=== PATIENT | male | born 1940 | race Caucasian/White ===

== ENCOUNTER 2020-06-03 08:45 | Outpatient (CLI) | payer MEDICARE, OTHER ==
[2020-06-03 14:27] LABS: BASOPHILS % (AUTO) 0.4 %; EOSINOPHILS % (AUTO) 0.4 %; HGB - HEMOGLOBIN 8.7 g/dL (14.0-18.0); LYMPHOCYTES # (AUTO) 0.9 10^3/uL (1.5-3.5); LYMPHOCYTES % (AUTO) 13.4 %; MEAN CORPUSCULAR HEMOGLOBIN 22.4 pg (27.0-31.0); MEAN CORPUSCULAR HGB CONC 26.9 g/dL (32.0-36.0); MONOCYTES # (AUTO) 0.7 10^3/uL (0.0-1.0); MONOCYTES % (AUTO) 10.3 %; NEUTROPHILS % (AUTO) 75.2 %; PLT - PLATELET COUNT 207 10^3/uL (130-450); RED BLOOD COUNT 3.89 10^6/uL (4.70-6.10); RED CELL DISTRIBUTION WIDTH 17.9 % (12.0-15.0); WHITE BLOOD COUNT 6.7 x10^3/uL (4.8-10.8)
[2020-06-03 14:45] LABS: PLATELET ESTIMATE, MANUAL NORMAL (130-450,000) (NORMAL); PLATELET MORPHOLOGY NORMAL APPEARANCE (NORMAL); RBC MORPHOLOGY (MULTIPLE) 2+ HYPOCHROMASIA (NORMAL)
[2020-06-03 15:27] LABS: ALBUMIN 4.4 g/dL (3.2-5.5); ALBUMIN/GLOBULIN RATIO 1.3 (1.0-2.2); ALKALINE PHOSPHATASE 73 IU/L (42-121); ALT ALANINE AMINOTRANSFERASE 13 IU/L (10-60); AST ASPARTATE AMINOTRANSFERASE 16 IU/L (10-42); BILIRUBIN,TOTAL 0.7 mg/dL (0.2-1.0); BUN - BLOOD UREA NITROGEN 19 mg/dL (6-20); CALCIUM 9.2 mg/dL (8.5-10.3); CARBON DIOXIDE - CO2 27 mmol/L (21-32); CHLORIDE 104 mmol/L (101-111); CHOL/HDL RATIO 3.4 (<5.0); CHOLESTEROL 126 mg/dL; GLUCOSE 109 mg/dL (70-100); HDL CHOLESTEROL 37 mg/dL; LDL CHOLESTEROL,CALCULATED 73 mg/dL; TOTAL PROTEIN 7.7 g/dL (6.7-8.2); VLDL CHOLESTEROL 16 mg/dL
== END 2020-06-03 08:46 | disposition home or self-care (01) ==
LOC: LAB.S 08:45
PROVIDERS: ATTEND Internal Medicine
DX: I10 Essential (primary) hypertension (principal); Z12.5 Encounter for screening for malignant neoplasm of prostate
CPT/HCPCS: 36415; 80053; 80061; 85025; G0103; 83721; 84153

== ENCOUNTER 2020-07-14 08:53 | Outpatient (CLI) | payer MEDICARE, OTHER ==
[2020-07-14 15:54] LABS: BASOPHILS % (AUTO) 0.3 %; EOSINOPHILS % (AUTO) 0.5 %; HCT - HEMATOCRIT 39.1 % (42.0-52.0); LYMPHOCYTES # (AUTO) 0.9 10^3/uL (1.5-3.5); LYMPHOCYTES % (AUTO) 14.9 %; MEAN CORPUSCULAR HEMOGLOBIN 25.6 pg (27.0-31.0); MEAN CORPUSCULAR HGB CONC 28.1 g/dL (32.0-36.0); MEAN CORPUSCULAR VOLUME 91.1 fL (80.0-94.0); MEAN PLATELET VOLUME 11.6 fL (7.4-11.4); MONOCYTES # (AUTO) 0.6 10^3/uL (0.0-1.0); MONOCYTES % (AUTO) 9.5 %; NEUTROPHILS # (AUTO) 4.3 10^3/uL (1.5-6.6); NEUTROPHILS % (AUTO) 74.5 %; PLT - PLATELET COUNT 172 10^3/uL (130-450); RED BLOOD COUNT 4.29 10^6/uL (4.70-6.10); RED CELL DISTRIBUTION WIDTH 25.9 % (12.0-15.0); WHITE BLOOD COUNT 5.8 x10^3/uL (4.8-10.8)
[2020-07-14 16:40] LABS: FERRITIN 23.4 ng/mL (23.9-336.2)
[2020-07-14 16:54] LABS: PLATELET ESTIMATE, MANUAL NORMAL (130-450,000) (NORMAL); PLATELET MORPHOLOGY 1+ GIANT PLATELETS (NORMAL)
[2020-07-14 16:55] LABS: WBC MORPHOLOGY (MULTIPLE) NORMAL APPEARANCE (NORMAL)
[2020-07-14 17:09] LABS: % IRON SATURATION 12 % (20-50); IRON 47 ug/dL (45-182); TOTAL IRON BINDING CAPACITY 403 ug/dL (250-450); TRANSFERRIN 288 mg/dL (180-329)
[2020-07-16 17:56] LABS: ALBUMIN 4.1 g/dL (3.8-4.8); ALPHA 1 GLOBULIN 0.3 g/dL (0.2-0.3); ALPHA 2 GLOBULIN 0.7 g/dL (0.5-0.9); BETA 1 GLOBULIN 0.5 g/dL (0.4-0.6); BETA 2 GLOBULIN 0.3 g/dL (0.2-0.5)
== END 2020-07-14 08:54 | disposition home or self-care (01) ==
LOC: LAB.S 08:53
PROVIDERS: ATTEND Internal Medicine
DX: D64.9 Anemia, unspecified (principal)
CPT/HCPCS: 36415; 81599; 82607; 82728; 83540; 84155; 84165; 84466; 85025; 86334

== ENCOUNTER 2020-10-09 08:18 | Outpatient (CLI) | payer MEDICARE, OTHER ==
[2020-10-09 14:39] LABS: BASOPHILS % (AUTO) 0.4 %; EOSINOPHILS # (AUTO) 0.1 10^3/uL (0.0-0.7); EOSINOPHILS % (AUTO) 1.4 %; HCT - HEMATOCRIT 43.3 % (42.0-52.0); HGB - HEMOGLOBIN 13.5 g/dL (14.0-18.0); LYMPHOCYTES # (AUTO) 1.2 10^3/uL (1.5-3.5); LYMPHOCYTES % (AUTO) 16.3 %; MEAN CORPUSCULAR HEMOGLOBIN 31.2 pg (27.0-31.0); MEAN CORPUSCULAR HGB CONC 31.2 g/dL (32.0-36.0); MEAN PLATELET VOLUME 11.7 fL (7.4-11.4); MONOCYTES # (AUTO) 0.7 10^3/uL (0.0-1.0); MONOCYTES % (AUTO) 9.2 %; NEUTROPHILS # (AUTO) 5.3 10^3/uL (1.5-6.6); NEUTROPHILS % (AUTO) 72.4 %; PLT - PLATELET COUNT 150 10^3/uL (130-450); RED BLOOD COUNT 4.33 10^6/uL (4.70-6.10); WHITE BLOOD COUNT 7.3 x10^3/uL (4.8-10.8)
[2020-10-09 14:57] LABS: FECAL OCCULT BLOOD (FIT) NEGATIVE (NEGATIVE)
== END 2020-10-09 08:19 | disposition home or self-care (01) ==
LOC: LAB.S 08:18
PROVIDERS: ATTEND Internal Medicine
DX: D64.9 Anemia, unspecified (principal); Z12.11 Encounter for screening for malignant neoplasm of colon
CPT/HCPCS: 36415; 82274; 85025

== ENCOUNTER 2021-01-12 08:40 | Outpatient (CLI) | payer MEDICARE, OTHER ==
[2021-01-12 14:43] LABS: BASOPHILS % (AUTO) 0.3 %; EOSINOPHILS # (AUTO) 0.1 10^3/uL (0.0-0.7); EOSINOPHILS % (AUTO) 0.8 %; HCT - HEMATOCRIT 45.2 % (42.0-52.0); HGB - HEMOGLOBIN 14.1 g/dL (14.0-18.0); LYMPHOCYTES # (AUTO) 1.1 10^3/uL (1.5-3.5); LYMPHOCYTES % (AUTO) 14.8 %; MEAN CORPUSCULAR HEMOGLOBIN 31.7 pg (27.0-31.0); MEAN CORPUSCULAR HGB CONC 31.2 g/dL (32.0-36.0); MEAN CORPUSCULAR VOLUME 101.6 fL (80.0-94.0); MONOCYTES # (AUTO) 0.7 10^3/uL (0.0-1.0); MONOCYTES % (AUTO) 9.3 %; NEUTROPHILS # (AUTO) 5.4 10^3/uL (1.5-6.6); NEUTROPHILS % (AUTO) 74.5 %; PLT - PLATELET COUNT 157 10^3/uL (130-450); RED BLOOD COUNT 4.45 10^6/uL (4.70-6.10); RED CELL DISTRIBUTION WIDTH 13.3 % (12.0-15.0); WHITE BLOOD COUNT 7.3 x10^3/uL (4.8-10.8)
[2021-01-12 15:08] LABS: ALBUMIN 4.3 g/dL (3.2-5.5); ALBUMIN/GLOBULIN RATIO 1.5 (1.0-2.2); CALCIUM 8.8 mg/dL (8.5-10.3); CREATININE 0.9 mg/dL (0.6-1.2); POTASSIUM 3.7 mmol/L (3.5-5.0); TOTAL PROTEIN 7.2 g/dL (6.7-8.2)
== END 2021-01-12 08:41 | disposition home or self-care (01) ==
LOC: LAB.S 08:40
PROVIDERS: ATTEND Internal Medicine
DX: I10 Essential (primary) hypertension (principal); D50.8 Other iron deficiency anemias
CPT/HCPCS: 36415; 80053; 82728; 85025

== ENCOUNTER 2021-12-18 12:44 | Outpatient (CLI) | payer MEDICARE, OTHER ==
[2021-12-18 19:48] LABS: BASOPHILS % (AUTO) 0.5 %; EOSINOPHILS # (AUTO) 0.1 10^3/uL (0.0-0.7); EOSINOPHILS % (AUTO) 1.3 %; HCT - HEMATOCRIT 43.7 % (42.0-52.0); HGB - HEMOGLOBIN 14.1 g/dL (14.0-18.0); LYMPHOCYTES # (AUTO) 1.4 10^3/uL (1.5-3.5); LYMPHOCYTES % (AUTO) 22.2 %; MEAN CORPUSCULAR HEMOGLOBIN 31.6 pg (27.0-31.0); MEAN CORPUSCULAR HGB CONC 32.3 g/dL (32.0-36.0); MEAN PLATELET VOLUME 11.5 fL (7.4-11.4); MONOCYTES # (AUTO) 0.6 10^3/uL (0.0-1.0); MONOCYTES % (AUTO) 9.3 %; NEUTROPHILS # (AUTO) 4.1 10^3/uL (1.5-6.6); NEUTROPHILS % (AUTO) 66.5 %; PLT - PLATELET COUNT 142 10^3/uL (130-450); RED BLOOD COUNT 4.46 10^6/uL (4.70-6.10); RED CELL DISTRIBUTION WIDTH 13.2 % (12.0-15.0); WHITE BLOOD COUNT 6.2 x10^3/uL (4.8-10.8)
== END 2021-12-18 12:45 | disposition home or self-care (01) ==
LOC: LAB.S 12:44
PROVIDERS: ATTEND Registered Nurse
DX: D50.9 Iron deficiency anemia, unspecified (principal)
CPT/HCPCS: 36415; 85025

== ENCOUNTER 2022-07-01 08:09 | Outpatient (CLI) | payer MEDICARE, OTHER ==
[2022-07-01 14:29] LABS: BASOPHILS % (AUTO) 0.3 %; EOSINOPHILS # (AUTO) 0.1 10^3/uL (0.0-0.7); EOSINOPHILS % (AUTO) 1.5 %; HCT - HEMATOCRIT 47.7 % (42.0-52.0); LYMPHOCYTES # (AUTO) 1.1 10^3/uL (1.5-3.5); LYMPHOCYTES % (AUTO) 17.3 %; MEAN CORPUSCULAR HEMOGLOBIN 31.5 pg (27.0-31.0); MEAN CORPUSCULAR HGB CONC 31.4 g/dL (32.0-36.0); MEAN CORPUSCULAR VOLUME 100.2 fL (80.0-94.0); MEAN PLATELET VOLUME 10.9 fL (7.4-11.4); MONOCYTES # (AUTO) 0.6 10^3/uL (0.0-1.0); MONOCYTES % (AUTO) 9.7 %; NEUTROPHILS # (AUTO) 4.6 10^3/uL (1.5-6.6); PLT - PLATELET COUNT 150 10^3/uL (130-450); RED BLOOD COUNT 4.76 10^6/uL (4.70-6.10); RED CELL DISTRIBUTION WIDTH 12.7 % (12.0-15.0); WHITE BLOOD COUNT 6.5 x10^3/uL (4.8-10.8)
[2022-07-01 14:49] LABS: ALBUMIN/GLOBULIN RATIO 1.3 (1.0-2.2); ALKALINE PHOSPHATASE 75 IU/L (42-121); ALT ALANINE AMINOTRANSFERASE 26 IU/L (10-60); AST ASPARTATE AMINOTRANSFERASE 25 IU/L (10-42); BILIRUBIN,TOTAL 1.1 mg/dL (0.2-1.0); BUN - BLOOD UREA NITROGEN 18 mg/dL (6-20); CALCIUM 8.9 mg/dL (8.5-10.3); CARBON DIOXIDE - CO2 28 mmol/L (21-32); CHLORIDE 105 mmol/L (101-111); CHOL/HDL RATIO 3.5 (<5.0); CHOLESTEROL 152 mg/dL; CREATININE 0.8 mg/dL (0.6-1.2); GFR - MDRD 93 (>89); GLUCOSE 106 mg/dL (70-100); HDL CHOLESTEROL 44 mg/dL; POTASSIUM 3.8 mmol/L (3.5-5.0); SODIUM 139 mmol/L (135-145); TOTAL PROTEIN 7.1 g/dL (6.7-8.2); TRIGLYCERIDES 39 mg/dL
[2022-07-01 15:03] LABS: THYROID STIMULATING HORMONE 1.4 uIU/mL (0.34-5.60)
== END 2022-07-01 08:10 | disposition home or self-care (01) ==
LOC: LAB.S 08:09
PROVIDERS: ATTEND Registered Nurse
DX: I10 Essential (primary) hypertension (principal); D50.9 Iron deficiency anemia, unspecified; Z13.220 Encounter for screening for lipoid disorders
CPT/HCPCS: 36415; 80053; 80061; 83721; 84443; 85025

== ENCOUNTER 2022-09-02 07:00 | Outpatient (CLI) | payer MEDICARE, OTHER | END 2022-09-02 23:59 | disposition home or self-care (01) | LOC: LAB.S 07:00 | PROVIDERS: ATTEND Nurse Practitioner | DX: T14.8XXA Other injury of unspecified body region, initial encounter (principal) | CPT/HCPCS: 87070; 87077; 87181; 87205 ==

== ENCOUNTER 2022-09-03 07:00 | Outpatient (CLI) | payer MEDICARE, OTHER ==
--- NOTE | 2022-09-04 13:49 | XRAY Report ---
PROCEDURE: Tib/Fib RT INDICATIONS: RIGHT ANKLE PAIN TECHNIQUE: 2 views of the tibia and fibula were acquired. COMPARISON: None. FINDINGS: Bones: Acute appearing mildly displaced lateral malleolus fracture with fracture at the level of the tibial plafond. There is possible widening of the medial clear space of the ankle and medial talar t ilt. Soft tissues: A tibiotalar effusion is present. IMPRESSION: Acute mildly displaced lateral malleolus fracture. Possible ankle mortise malalignment. Reviewed by: Stewart Truong MD on 09/04/2022 1:48 PM PDT Approved by: Stewart Truong MD on 09/04/2022 1:48 PM PDT Station ID: [id number]
== END 2022-09-03 23:59 | disposition home or self-care (01) ==
LOC: DI.S 07:00
PROVIDERS: ATTEND Internal Medicine
DX: S82.61XA Displaced fracture of lateral malleolus of right fibula, initial encounter for closed fracture (principal)

== ENCOUNTER 2022-09-09 08:00 | Outpatient (CLI) | payer MEDICARE, OTHER ==
--- NOTE | 2022-09-09 15:17 | XRAY Report ---
PROCEDURE: Ankle 3 View RT INDICATIONS: RIGHT ANKLE FRACTURE TECHNIQUE: 3 views of the ankle were acquired. COMPARISON: X-ray lower extremity tib-fib 09/04/2022 FINDINGS: Bones: Mildly displaced distal fibular fracture. There is subluxation at the tibiotalar joint space, unchanged. No suspicious bony lesions. Soft tissues: No tibiotalar joint effusion. Achilles tendon appears normal. IMPRESSION: Stable alignment of mildly displaced distal fibular fracture with subluxation at the tibiotalar joint space. Reviewed by: Alina Salvador MD on 09/09/2022 3:16 PM PDT Approved by: Alina Salvador MD on 09/09/2022 3:16 PM PDT Station ID: [id number]
== END 2022-09-09 23:59 | disposition home or self-care (01) ==
LOC: DI.WOS 08:00
PROVIDERS: ATTEND Physician Assistant Surgical
DX: S82.831D Other fracture of upper and lower end of right fibula, subsequent encounter for closed fracture with routine healing (principal)

== ENCOUNTER 2022-12-19 12:10 | Inpatient (IN) | payer MEDICARE, OTHER ==
--- NOTE | 2022-12-19 12:47 | ED Physician Documentation ---
PD HPI ALTERED MENTAL STATUS - Stated complaint Stated Complaint: CONFUSION,DISORIENTED - Chief complaint Chief Complaint: Neuro - History obtained from History obtained from: Patient, Family - History of Present Illness Timing - onset: Yesterday Timing - duration: Days (2) Timing - details: Gradual onset Quality / character: Confused, Disoriented Associated symptoms: Headache (earlier today). No: Fever, Stiff neck, Dyspnea, Cough, NVD, Urinary sx, General weakness, Focal weakness, Seizure activity Contributing factors: No: Anticoagulated, Diabetic, Cancer, COPD, New medication, Recent med change, Recent illness, Recent injury, Intoxicated, Substance abuse, Known psych illness, Known dementia Basline status: Alert and oriented X 3, Ambulatory, Independent Similar symptoms before: Has not had sx before Recently seen: Not recently seen Review of Systems Constitutional: denies: Fever Ears: denies: Ear pain Nose: denies: Rhinorrhea / runny nose, Congestion Respiratory: denies: Dyspnea, Cough GI: denies: Abdominal Pain, Nausea, Vomiting, Diarrhea Skin: denies: Rash Musculoskeletal: denies: Neck pain, Back pain Neurologic: denies: Head injury PD PAST MEDICAL HISTORY - Past Medical History Cardiovascular: Hypertension Respiratory: None Endocrine/Autoimmune: None GI: Colon polyps : None HEENT: None Psych: None Musculoskeletal: Other Derm: None - Past Surgical History General: Colonoscopy - Present Medications Home Medications: Ambulatory Orders Medication Instructions Recorded Confirmed Amlodipine Besylate 10 mg PO DAILY 01/26/16 09/16/22 Lisinopril 40 mg PO DAILY 01/26/16 09/16/22 Atenolol [Tenormin] 50 mg PO DAILY 09/16/22 09/16/22 Calcium Citrate 99 mg PO DAILY 09/16/22 09/16/22 Cholecalciferol [Vitamin D3] 5,000 unit PO DAILY 09/16/22 09/16/22 Iron,Carb/Vit C/Vit B12/Folic [Fe 1 tab PO DAILY 09/16/22 09/16/22 C Plus Tablet] Roy-3 Fatty Acids [Roy-3] 1,000 mg PO DAILY 09/16/22 09/16/22 Vitamin B Complex Vit C No.3 [B 1 cap PO DAILY 09/16/22 09/16/22 Complex with Vitamin C] Vitamin K2 (Mk-4) [Vitamin K2 125 mcg PO DAILY 09/16/22 09/16/22 (Menaquinone-4)] Zinc Gluconate [Zinc] 50 mg PO DAILY 09/16/22 09/16/22 Triamcinolone Acetonide 0.1% See Rx Instructions .ROUTE 11/04/22 [Triamcinolone Acetonide] .COMPLEX #454 gm - Allergies Allergies/Adverse Reactions: Allergies Allergy/AdvReac Type Severity Reaction Status Date / Time No Known Drug Allergies Allergy Verified 12/19/22 12:15 PD ED PE NORMAL - Vitals Vital signs reviewed: Yes - General General: No acute distress, Well developed/nourished, Other (alert, oriented to person and place) - HEENT HEENT: Atraumatic, PERRL, EOMI, Moist mucous membranes, Pharynx benign - Neck Neck: Supple, no meningeal sign - Cardiac Cardiac: RRR, Strong equal pulses - Respiratory Respiratory: No respiratory distress, Clear bilaterally - Abdomen Abdomen: Soft, Non tender, Non distended - Derm Derm: Warm and dry, Other (Healing wound R ankle no signs of infection) - Extremities Extremities: No edema, No calf tenderness / cord - Neuro Neuro: project engineer 2-12 intact, No motor deficit, No sensory deficit, Other (slow to respond, slow speech) Eye Opening: Spontaneous Motor: Obeys Commands Verbal: Confused GCS Score: 14 NIHSS - Time Time: 12:40 - Level of Consciousness Level of consciousness: (1) Not alert, but arousable by minor stimulation to obey, or answer LOC Questions: (1) Answers one Q correctly LOC Commands: (1) Performs one correctly - Gaze Best Gaze: (0) Normal - Visual Visual: (0) No loss - Facial Palsy Facial Palsy: (0) Normal, symmetrical movement - Motor Arms (both separate) Motor Arm (right): (0) No drift Motor Arm (left): (0) No drift - Motor Legs (both separate) Motor Leg (right): (0) No drift Motor Leg (left): (0) No drift - Limb Ataxia Limb Ataxia: (0) Absent - Sensory Sensory: (0) Normal - Best Language Best Language: (1) [id number] - Dysarthria Dysarthria: (0) Normal - Extinction and Inattention (formally neg Extinction and inattention: (0) No abnormality - Total Score/Results Total Score/Result: 4 Results - Vitals Vitals: Vital Signs - 24 hr 12/19/22 12/19/22 12:15 15:28 Temperature 36.8 C Heart Rate 67 45 L Respiratory 16 12 Rate Blood Pressure 155/92 H 143/89 H O2 Saturation 98 97 Oxygen O2 Source Room air - EKG (time done) 1437 EKG releavant findings:: EKG personally interpreted by author of this note. Relevant findings are: Rate: Rate (enter#) (55) Rhythm: NSR [place]: Normal Intervals: 1st degree AVB QRS: Normal Ischemia: Normal ST segments - Labs Labs: Laboratory Tests 12/19/22 12/19/22 12/19/22 12:53 12:53 12:56 WBC 9.5 RBC 5.25 Hgb 16.3 Hct 50.1 MCV 95.4 H MCH 31.0 MCHC 32.5 RDW 12.7 Plt Count 149 MPV 10.3 Neut # (Auto) 7.8 H Lymph # (Auto) 1.0 L [place] # (Auto) 0.7 Eos # (Auto) 0.0 Baso # (Auto) 0.0 Absolute Nucleated RBC 0.00 Nucleated RBC % 0.0 Sodium 136 Potassium 4.0 Chloride 101 Carbon Dioxide 28 Anion Gap 7.0 BUN 14 Creatinine 0.9 Estimated GFR (MDRD) 81 L Glucose 112 H Calcium 10.1 Magnesium 1.9 Total Bilirubin 1.2 H AST 18 ALT 15 Alkaline Phosphatase 82 Total Creatine Kinase 76 Total Protein 7.5 Albumin 4.6 Globulin 2.9 Albumin/Globulin Ratio 1.6 Lipase 17 TSH 1.09 Urine Color YELLOW Urine Clarity CLEAR Urine pH 7.5 Ur Specific Continental 1.010 Urine Protein NEGATIVE Urine Glucose (UA) NEGATIVE Urine Ketones NEGATIVE Urine Occult Blood NEGATIVE Urine Nitrite NEGATIVE Urine Bilirubin NEGATIVE Urine Urobilinogen 0.2 (NORMAL) Ur Leukocyte Esterase SMALL H Urine RBC 0-5 Urine WBC 0-3 Ur Squamous Epith Cells RARE Squamous Urine Bacteria Rare Ur Microscopic Review INDICATED Urine Culture Comments INDICATED Salicylates < 1.5 Urine Opiates Screen NEGATIVE Ur Oxycodone Screen NEGATIVE Urine Methadone Screen NEGATIVE Ur Propoxyphene Screen NEGATIVE Acetaminophen < 0.1 Ur Barbiturates Screen NEGATIVE Ur Tricyclics Screen NEGATIVE Ur Phencyclidine Scrn NEGATIVE Ur Amphetamine Screen NEGATIVE U Methamphetamines Scrn NEGATIVE U Benzodiazepines Scrn NEGATIVE Urine Cocaine Screen NEGATIVE U Cannabinoids Screen NEGATIVE Ethyl Alcohol < 10.0 - Rads (name of study) head CT Relevant Findings:: Final report received, See rad report angio head/neck Relevant Findings:: Final report received, See rad report PD Medical Decision Making - ED course Complexity details: reviewed results, re-evaluated patient, considered differential, d/w patient, d/w family, d/w business continuity consultant Reviewed Lab Results: No significant findings on CBC, chemistry or urinalysis. Urinalysis appears more consistent with contamination than true UTI. ED course: 82-year-old male with a subacute right MCA stroke. This would be consistent with his confusion that has been gradually worsening. I did speak with teleneurology, Dr. Tompkins, they do recommend aspirin, Lipitor and usual stroke work-up. Angiogram of the head and neck do show diminutive flow in the right MCA and abnormalities in the vertebral artery. Patient was started on aspirin. We will admit the patient for further work-up of his stroke. Patient denies ever having strokes in the past. Discussed the case with Dr. Mccartney, hospitalist who accepts. This document was made in part using voice recognition software. While efforts are made to proofread this document, sound alike and grammatical errors may occur. Departure - Departure Disposition: 66 [facility] DC/Jo Clinical Impression: Acute right MCA stroke Condition: Stable Discharge Date/Time: 12/19/22 17:00
[2022-12-19 13:06] LABS: BASOPHILS % (AUTO) 0.2 %; EOSINOPHILS % (AUTO) 0.2 %; HCT - HEMATOCRIT 50.1 % (42.0-52.0); HGB - HEMOGLOBIN 16.3 g/dL (14.0-18.0); LYMPHOCYTES % (AUTO) 10.8 %; MEAN CORPUSCULAR HGB CONC 32.5 g/dL (32.0-36.0); MEAN CORPUSCULAR VOLUME 95.4 fL (80.0-94.0); MEAN PLATELET VOLUME 10.3 fL (7.4-11.4); MONOCYTES # (AUTO) 0.7 10^3/uL (0.0-1.0); MONOCYTES % (AUTO) 7.1 %; NEUTROPHILS # (AUTO) 7.8 10^3/uL (1.5-6.6); NEUTROPHILS % (AUTO) 81.4 %; PLT - PLATELET COUNT 149 10^3/uL (130-450); RED BLOOD COUNT 5.25 10^6/uL (4.70-6.10); RED CELL DISTRIBUTION WIDTH 12.7 % (12.0-15.0); WHITE BLOOD COUNT 9.5 x10^3/uL (4.8-10.8)
[2022-12-19 13:06] LABS: MUDS CUTOFF CONCENTRATIONS CUTOFF CONC BELOW:
[2022-12-19 13:08] LABS: BILIRUBIN,URINE NEGATIVE (NEGATIVE); GLUCOSE, URINE (UA) NEGATIVE (NEGATIVE); KETONES,URINE (UA) NEGATIVE (NEGATIVE); LEUKOCYTE ESTERASE, URINE SMALL (NEGATIVE); NITRITE,URINE NEGATIVE (NEGATIVE); OCCULT BLOOD,URINE NEGATIVE (NEGATIVE); PH,URINE 7.5 PH (5.0-7.5); PROTEIN,URINE NEGATIVE (NEGATIVE); UROBILINOGEN,URINE 0.2 (NORMAL) E.U./dL (NORMAL)
[2022-12-19 13:11] LABS: CLARITY,URINE CLEAR (CLEAR)
[2022-12-19 13:23] LABS: ALBUMIN 4.6 g/dL (3.2-5.5); ALBUMIN/GLOBULIN RATIO 1.6 (1.0-2.2); ALKALINE PHOSPHATASE 82 IU/L (42-121); ALT ALANINE AMINOTRANSFERASE 15 IU/L (10-60); AST ASPARTATE AMINOTRANSFERASE 18 IU/L (10-42); BILIRUBIN,TOTAL 1.2 mg/dL (0.2-1.0); BUN - BLOOD UREA NITROGEN 14 mg/dL (6-20); CALCIUM 10.1 mg/dL (8.5-10.3); CARBON DIOXIDE - CO2 28 mmol/L (21-32); CHLORIDE 101 mmol/L (101-111); CK- CREATINE KINASE 76 IU/L (30-223); CREATININE 0.9 mg/dL (0.6-1.3); ETOH - ETHANOL < 10.0 mg/dL; GFR - MDRD 81 (>89); GLUCOSE 112 mg/dL (74-104); LIPASE 17 U/L (11-82); MAGNESIUM 1.9 mg/dL (1.7-2.3); SODIUM 136 mmol/L (135-145); TOTAL PROTEIN 7.5 g/dL (6.4-8.9)
[2022-12-19 13:23] LABS: BACTERIA,URINE Rare /HPF (None Seen); RBC,URINE 0-5 /HPF (0-5); SQUAMOUS EPITHELIAL CELL,UR RARE Squamous (<= Few); WBC,URINE 0-3 /HPF (0-3)
[2022-12-19 13:24] LABS: ACETAMINOPHEN < 0.1 ug/mL; SALICYLATE < 1.5 mg/dL
[2022-12-19 13:25] LABS: AMPHETAMINE SCREEN,URINE NEGATIVE (NEGATIVE); BARBITURATE SCREEN,UR NEGATIVE (NEGATIVE); BENZODIAZEPINES SCREEN, URINE NEGATIVE (NEGATIVE); COCAINE SCREEN URINE NEGATIVE (NEGATIVE); METHADONE SCREEN, URINE NEGATIVE (NEGATIVE); METHAMPHETAMINES SCREEN, URINE NEGATIVE (NEGATIVE); OPIATE SCREEN, URINE NEGATIVE (NEGATIVE); OXYCODONE SCREEN, URINE NEGATIVE (NEGATIVE); PROPOXYPHENE SCREEN, URINE NEGATIVE (NEGATIVE); THC CANNABINOID SCREEN, URINE NEGATIVE (NEGATIVE); TRICYCLIC ANTIDEPRESSANT,URINE NEGATIVE (NEGATIVE)
--- NOTE | 2022-12-19 13:30 | CT Report ---
PROCEDURE: CT brain without contrast INDICATIONS: altered mental status TECHNIQUE: Helical axial CT of the brain was obtained without contrast and reformatted in multiple p lanes. Radiation dose reduction was achieved using automated exposure control or adjustment of mA and /or kV according to patient size. COMPARISON: None. FINDINGS: CSF spaces: Ventricles are appropriate in size and position. No hydrocephalus. Basal cisterns unre markable. Brain: There is obscuration of the mathur-white junction and sulcal effacement noted in the approximat frank one third of the right MCA territory in the temporal and posterior parietal lobes consistent with subacute right MCA infarct. Hyperintensity also noted in the right distal right and 3 MCA branches i n the sylvian cistern consistent with thrombus. Otherwise, there is atrophy and multifocal white matter chronic ischemic change present. No intracran ial hemorrhage. Skull and face: Calvarium and skull base are unremarkable without suspicious lesion. Sinuses: Visualized sinuses and mastoids are clear. IMPRESSION: Subacute right MCA infarct with cerebral edema and sulcal effacement, but no intracranial hemorrhage or midline shift currently. Atrophy and multifocal white matter chronic ischemic change Reviewed by: Shade Newell MD on 12/19/2022 12:28 PM KAYDEN Approved by: Shade Newell MD on 12/19/2022 12:28 PM AKDT Station ID: [id number]
[2022-12-19 13:52] LABS: THYROID STIMULATING HORMONE 1.09 uIU/mL (0.34-5.60)
[2022-12-19] MEDS ORDERED: ASPIRIN CHEW 81 MG TABLET PO STA (13:53)
[2022-12-19] MEDS ORDERED: IOVERSOL 320 100 ML VIAL IVP ONE (14:44)
--- NOTE | 2022-12-19 15:10 | CT Report ---
PROCEDURE: CT angiogram head and neck with contrast INDICATIONS: Subacute right MCA infarct TECHNIQUE: Helical axial CT of the head and neck was obtained during the arterial phase of a intrave nous contrast injection utilizing an angiographic protocol, and reformatted in multiple planes. Mult iplanar MIP reformats were also obtained. Any estimate of proximal ICA stenosis was calculated using NASCET guidelines. Dose reduction techniques included either automated exposure control or adjustmen t of exposure parameters. COMPARISON: CT brain 12/19/2022 FINDINGS: Cerebral CT Angiogram: Internal carotid arteries: The sequelae of prior dissection.. No aneurysm. Anterior cerebral arteries: Multifocal severe stenosis noted involving the right A2 THOMAS branch. Main THOMAS vessels are patent. Middle cerebral arteries: Left MCA unremarkable. No proximal right MCA occlusion. Distal right MCA va sculature is diminutive relative to the left, consistent with subacute infarct on prior CT Posterior cerebral arteries: Unremarkable. No significant stenosis. No occlusion. No aneurysm. Basilar artery: Unremarkable. No significant stenosis. No occlusion. No aneurysm. Vertebral arteries: Multifocal severe stenosis in the midline technique the V3 segment with near occl usion. The intradural segment completely occludes at the origin. Trace retrograde flow noted from the basilar artery. Dural venous sinuses: Unremarkable given phase of enhancement. Other: Arterial phase appearance of the brain parenchyma is unremarkable. Neck CT Angiogram: Internal carotid arteries: Calcified arthritic plaque in both proximal internal carotid arteries resu lts in less than 20% stenosis utilizing NASCET criteria Common carotid arteries: Unremarkable. No significant stenosis. No dissection or occlusion. External carotid arteries: Unremarkable. No occlusion. Vertebral arteries: Multifocal severe stenosis noted throughout the extra foraminal and foraminal lef t vertebral artery. Without complete occlusion. There is right vertebral artery dominance. Aortic Arch and Mediastinum: Partially visualized aortic arch unremarkable without evidence of aneury sm. Origins of the great vessels unremarkable. Other: Arterial phase soft tissues of the neck are unremarkable. Degenerative disc disease and arthro greta in the cervical spine. 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 Diminutive distal right MCA branches consistent with subacute MCA infarct. No proximal M1 lesion. Severe stenosis without occlusion right P2 THOMAS branch vessel. Reviewed by: Shade Newell MD on 12/19/2022 2:09 PM KAYDEN Approved by: Shade Newell MD on 12/19/2022 2:09 PM AKFLORIDA Station ID: [id number]
[2022-12-19] MEDS ORDERED: ONDANSETRON 4 MG/2 ML VIAL IVP PRN (16:35)
[2022-12-19] MEDS ORDERED: ACETAMINOPHEN 325 MG TABLET PO PRN (16:35)
--- NOTE | 2022-12-19 16:52 | HISTORY & PHYSICAL EXAMINATION ---
Chief Complaint - Chief Complaint Chief Complaint: Confusion, and trouble finding words History of Present Illness - Admitted From Admitted From:: ED - History Obtained From History obtained from: ED provider and the patient's son at bedside - History of Present Illness HPI Comment/Other: This is an 82-year-old male with history of hypertension on 3 medications and BPH on treatment. He lives alone for the past 15 years. He drives a car. He makes his own meals and is responsible for his medicines. He was out fishing just 2 days ago. He then developed symptoms of confusion and difficulty finding words yesterday while at a , and needed to be taken h ome from the hr receptionist and the neighbor checked in on him. Today the son arrived from [place] and witnessed confusion, poor memory and trouble finding words and the pt was brought to the ER today, over 24 hours after first onset of symptoms. Work-up in the ED showed a subacute stroke in the R MCA territory with cerbral edema and sulcal effacement but no hemorrhage or midline shift. 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 The ED provider reached out to telemedicine neurology who advised admission here for stroke work-up and to start aspirin and Lipitor. The ED provider then spoke to me about this patient for admission. I asked the son at bedside what the patient's CODE BLUE wishes are, and he wants to be a DNR/DNI. History - Past Medical History Cardiovascular: reports: Hypertension Respiratory: reports: None Neuro: reports: None (no prior neuro Hx until yesterday's confusion) Endocrine/Autoimmune: reports: None GI: reports: Colon polyps : reports: None HEENT: reports: None Psych: reports: None Musculoskeletal: reports: Other (R leg rash, followed in wound clinic. Leg ABIs were normal in 10/2022.) Derm: reports: None MRSA Hx?: Yes - Past Surgical History General: reports: Colonoscopy - Family & Social History Family History Comment/Other: HTN runs in family members Living arrangement: At home Living Situation: Alone Social History Notes: Patient is an ex-smoker who quit 20 years ago. The patient quit drinking alcohol 50 years ago. He uses no illicit drugs. The patient is a retired pharmacist, worked at [employer]. The patient drives a car, is independent with walking, enjoys going fishing. - Substance History Use: Uses substance without health or social issues: NONE - POLST Patient has POLST: No POLST Status: DNR (As per the son, from the patient's advanced directive) Meds/Allgy - Home Medications Home Medications: Ambulatory Orders Medication Instructions Recorded Confirmed Amlodipine Besylate 10 mg PO DAILY 01/26/16 09/16/22 Lisinopril 40 mg PO DAILY 01/26/16 09/16/22 Atenolol [Tenormin] 50 mg PO DAILY 09/16/22 09/16/22 Calcium Citrate 99 mg PO DAILY 09/16/22 09/16/22 Cholecalciferol [Vitamin D3] 5,000 unit PO DAILY 09/16/22 09/16/22 Iron,Carb/Vit C/Vit B12/Folic [Fe 1 tab PO DAILY 09/16/22 09/16/22 C Plus Tablet] [place]-3 Fatty Acids [[place]-3] 1,000 mg PO DAILY 09/16/22 09/16/22 Vitamin B Complex Vit C No.3 [B 1 cap PO DAILY 09/16/22 09/16/22 Complex with Vitamin C] Vitamin K2 (Mk-4) [Vitamin K2 125 mcg PO DAILY 09/16/22 09/16/22 (Menaquinone-4)] Zinc Gluconate [Zinc] 50 mg PO DAILY 09/16/22 09/16/22 Triamcinolone Acetonide 0.1% See Rx Instructions .ROUTE 11/04/22 [Triamcinolone Acetonide] .COMPLEX #454 gm - Allergies Allergies/Adverse Reactions: Allergies Allergy/AdvReac Type Severity Reaction Status Date / Time No Known Drug Allergies Allergy Verified 12/19/22 12:15 Review of Systems - All Other Systems All Other Systems: reports: Reviewed and negative Exam - Vital Signs Reviewed Vital Signs: Yes Vital Signs: Vital Signs x48h Temp Pulse Resp BP Pulse Ox 12/19/22 15:28 45 L 12 143/89 H 97 12/19/22 12:15 36.8 C 67 16 155/92 H 98 - Physical Exam General Appearance: positive: Mild distress (From confusion causing agitation) Eyes Bilateral: positive: Normal inspection, EOMI ENT: positive: ENT inspection nml, No signs of dehydration Neck: positive: Nml inspection, No JVD Respiratory: positive: No respiratory distress, Breath sounds nml Cardiovascular: positive: Regular rate & rhythm, No murmur Abdomen: positive: Non-tender, Nml bowel sounds, No distention Skin: positive: Warm, Dry Extremities: positive: Non-tender, No pedal edema Neurologic/Psychiatric: positive: Motor nml, Disoriented to person, Disoriented to place, Disoriented to time, Other (Poor memory. Word-finding difficulty) Conclusion/Plan - Problem List (1) Acute right MCA stroke Conclusion/Plan: The CT brain imaging shows an infarct in the right MCA territory. He is intermittently confused with agitation and is able to voice that he is very frustrated with that. He has tried to climb out of bed but does follow the son's redirections. His memory is poor, he could not remember his easily. Plan: Admit the patient to inpatient status Neurochecks every 4 hours. If there is worsening status, would repeat the head CT or obtain a brain MRI. Low-dose of Ativan for confusion causing agitation, will be used Place on telemetry, monitor for Afib Obtain Echo with bubble study to evaluate for cardiac source of embolus or PFO Obtain carotid ultrasound, complete Check lipids and treat per guidelines Continue with aspirin daily and empiric statin PT and OT evaluations ordered We will allow permissive hypertension for the first 24 hours then resume his BP meds (2) Cerebral edema Conclusion/Plan: The brain CT imaging also reports having cerebral edema but no midline shift. This bodes a poor prognosis. I updated the son at bedside regarding all the findings Plan: Neurochecks every 4 hours Keep HOB elevated at 30 degrees or more Other orders as in #1 above Given the significant confusion, I have advised that a family member stay in the room with him so that there is familiarity and the son agrees to remain here (3) Cerebral vascular disease Conclusion/Plan: CTA images show that he has several vascular distributions with abnormality: A nearly occluded right MCA distally, a nearly occluded L vertebral distally and also severe stenosis proximally and internal carotids have evidence of prior dissection. Plan: Management will be as for the (sub)acute stroke. The telemedicine neurologist did not recommend transfer for interventions acutely (4) HTN (hypertension) Conclusion/Plan: Patient has a history of hypertension and is on 3 antihypertensives at home: Atenolol, lisinopril and Norvasc His EKG shows severe LVH which could be from this HTN Plan: We will allow 24 hours of permissive hypertension and then resume his BP meds - Lab Results Fish Bones: 12/19/22 12:53 12/19/22 12:53 - Diagnostic Imaging Results Diagnostic Imaging Results: positive: Final report reviewed - Other Other Results/Comments: Attestation: The patient is expected to need hospitalization for greater than 2 midnights, and is expected to be discharged or transferred to another facility within 96 hours: Yes.
[2022-12-19] MEDS: LORazepam 2 MG/ML VIAL IVP PRN ×2 (18:02→21:51)
[2022-12-19] MEDS: SODIUM CHLORIDE FLUSH 0.9% 10 ML SYRINGE IVP SCH (18:03)
--- NOTE | 2022-12-19 19:42 | Ultrasound Report ---
PROCEDURE: Carotid Doppler Complete INDICATIONS: CVA,"evidence of prior disection internal carotid" TECHNIQUE: Color and pulse Doppler interrogation was performed of both carotid systems, with image documentation and velocity measurements. COMPARISON: None. FINDINGS: Right side: Brachial blood pressure: 171/59 mm Hg. Common carotid artery peak systolic velocity: 71.2 cm/sec. Internal carotid artery peak systolic velocity: 70.2 cm/sec. Internal carotid artery end diastolic velocity: 15.4 cm/sec. External carotid artery peak systolic velocity: 81.2 cm/sec. ICA/CCA peak systolic ratio: 1.0 . Quigley scale imaging description: Moderate diffuse plaque. Percent internal carotid artery stenosis: Less than 50% stenosis. Vertebral artery: Flow direction is antegrade. Left side: Brachial blood pressure: 157/70 mm Hg. Common carotid artery peak systolic velocity: 85.1 cm/sec. Internal carotid artery peak systolic velocity: 87.9 cm/sec. Internal carotid artery end diastolic velocity: 22.6 cm/sec. External carotid artery peak systolic velocity: 76.0 cm/sec. ICA/CCA peak systolic ratio: 1.0 . Quigley scale imaging description: Moderate diffuse plaque. Percent internal carotid artery stenosis: Less than than 50% stenosis. Vertebral artery: Flow direction is antegrade. IMPRESSION: 1. In the right internal carotid artery, there is less than 50 percent stenosis based on peak systoli c velocity criteria. 2. In the left internal carotid artery, there is less than 50 percent stenosis based on peak systolic velocity criteria. 3. Antegrade blood flow within the right vertebral artery. 4. Antegrade blood flow within the left vertebral artery. The estimate of stenosis included in the report of the imaging study was calculated using the [facility]-end orsed standards of carotid artery stenosis. Reviewed by: Leandro Zuniga on 12/19/2022 7:40 PM PDT Approved by: Leandro Zuniga on 12/19/2022 7:40 PM PDT Station ID: [id number]
[2022-12-20] MEDS: SODIUM CHLORIDE FLUSH 0.9% 10 ML SYRINGE IVP SCH ×3 (03:22→18:25)
[2022-12-20 05:33] LABS: CHOL/HDL RATIO 3.7 (<5.0); CHOLESTEROL 117 mg/dL; HDL CHOLESTEROL 32 mg/dL; LDL CHOLESTEROL,CALCULATED 66 mg/dL; LDL/HDL RATIO 2.1 (<3.6); TRIGLYCERIDES 94 mg/dL (48-352); VLDL CHOLESTEROL 19 mg/dL
[2022-12-20] MEDS: ASPIRIN EC 81 MG TABLET PO SCH (08:17)
--- NOTE | 2022-12-20 13:44 | PHARMACY PROGRESS NOTE ---
- Best Possible Medication History Admit Date and Time: 12/19/22 5861 Processed by: Pharmacy Medication History completed: Yes Patient Interview: Completed Secondary Source(s): Other family member, Insurance records As the person ultimately responsible for medication therapy, providers are able to order a medication from an existing home medication list in [facility] via the "Reconcile Routine" prior to Confirmation of that medication by field technical support consultant. Such practice is discouraged except when the physician, in their clinical judgment, deems that a medical need exists for a medication without regard to previous use.
--- NOTE | 2022-12-20 15:04 | PROVIDER PROGRESS NOTE ---
Assessment/Plan - Problem List (1) Acute right MCA stroke Assessment/Plan: The CT brain imaging shows an infarct in the right MCA territory. He presented intermittently confused with agitation, but was answering questions yesterday but with word-finding difficulty, and even said he is frustrated with that. He tried to climb out of bed at admission, but then followed the son's redirections. Son stayed in his room ever since admission. Fasting lipids showed LDL of 66, Trig 84. Today he has worsening mental status, is more lethargic, did not follow directions, did not know what to do with food on his plate or a sock that was handed to him. My concern is that his cerebral edema is worsening since he had a large territory of brain involved with the stroke Plan: I will move the patient to the ICU Neurochecks every 4 hours. Stop Ativan for agitation Cont telemetry, monitor for Afib Obtain Echo with bubble study to evaluate for cardiac source of embolus or PFO (He was admitted on Tuesday, today is Tuesday, we have no sterile preparation technician until Tuesday through ) Continue baby aspirin daily. We will only put him on Lipitor 20 nightly PT and OT evaluations ordered We will allow permissive hypertension for the first 24 hours then resume his BP meds (2) Cerebral edema Conclusion/Plan: The brain CT imaging reports cerebral edema but no midline shift. This bodes a poor prognosis. My concern is that his cerebral edema is worsening since he had a large terr itory of brain involved with the stroke. I updated the son at bedside regarding all the findings Plan: Transfer patient to ICU Start mannitol bolus then q6h dosing. Measure serum osmolality q6h, stop Mannitol if abn osmolallity Neurochecks every 4 hours Keep HOB elevated at 30 degrees or more Stop Ativan for agitation Given the significant confusion, I have advised that a family member stay in the room with him so he has familiarity (3) Cerebral vascular disease Conclusion/Plan: CTA images show that he has several vascular distributions with abnormality: A nearly occluded right MCA distally, a nearly occluded L vertebral distally and also severe stenosis proximally and internal carotids have evidence of prior dissection. Ultrasound carotids was done and showed no significant stenoses and no dissection Plan: Management will be as for the (sub)acute stroke. The telemedicine neurologist did not recommend transfer for interventions acutely (4) HTN (hypertension) Conclusion/Plan: Patient has a history of hypertension and is on 3 antihypertensives at home: Atenolol, lisinopril and Norvasc His EKG shows severe LVH which could be from this HTN Plan: We will allow 24-48 hours of permissive hypertension and then resume his BP meds slowly - Current Meds Current Meds: Current Medications Generic Name Dose Route Start Last Admin Trade Name Freq PRN Reason Stop Dose Admin Aspirin 81 mg 12/20/22 09:00 12/20/22 08:17 Aspirin Ec 81 Mg Tablet PO 81 mg DAILY MOSES Administration Lorazepam 0.5 mg 12/19/22 17:51 12/19/22 21:51 Lorazepam 2 Mg/Ml Vial IVP 0.5 mg Q4H PRN Administration Agitation Sodium Chloride 10 ml 12/19/22 17:00 12/20/22 08:17 Sodium Chloride Flush 0.9% 10 Ml Syringe IVP 10 ml 0100,0900,1700 MOSES Administration - Lab Result Fish Bone Diagrams: 12/19/22 12:53 12/19/22 12:53 - Additional Planning My Orders: My Active Orders 12/19/22 Dinner Soft Mechanical Diet [DIET] 12/19/22 16:35 Activity Orders [RC] Q2HR IO [RC] IOSHIFT Incentive Spirometry - RT [RC] .TID Initiate Bowel Care Protocol [RC] .protocol Initiate Line Care Protocol [RC] QSHIFT Initiate Personal Care Protoco [RC] .protocol Oxygen Therapy [RC] .PRN Telemetry- [RC] Q4HR Vital Signs [RC] 0800,1600,0000 Acetaminophen [Tylenol] 650 mg PO Q4HR PRN Ondansetron Inj [Zofran Inj] 4 mg IVP Q6HR PRN Sodium Chloride Flush 0.9% [Normal Saline Flush 0.9%] 10 ml IVP PRN PRN Code Status [OTHERS] Routine Condition of Patient [OTHERS] Routine DVT Prophylaxis [OTHERS] Routine 12/19/22 16:37 IV Insert [RC] .ONCE Initiate Line Care Protocol [RC] QSHIFT SCDs [RC] QSHIFT Evaluate and Treat OT [OT] Routine Evaluate and Treat PT [PT] Routine 12/19/22 16:41 Neuro Check [RC] Q4HR 12/19/22 17:00 Sodium Chloride Flush 0.9% [Normal Saline Flush 0.9%] 10 ml IVP 0100,0900,1700 12/19/22 17:51 LORazepam INJ [Ativan Inj (Vial)] 0.5 mg IVP Q4H PRN 12/19/22 17:52 Elevate HOB 30 - 45 degrees [RC] .ONCE 12/20/[address] [ST] Routine 12/20/22 07:00 Echo Complete w/Bubble Study [ECHO] Routine 12/20/22 09:00 Aspirin EC [Ecotrin] 81 mg PO DAILY 12/20/22 14:58 Transfer [Admit \ Transfer \ Status] [RC] .ONCE 12/20/22 21:00 Atorvastatin [Lipitor] 20 mg PO QPM Subjective - Subjective Patient Reports: Other (He is not as agitated, and could not focus on wher my speech was coming from, looked off to the side) Nursing Reports: Other (RN reports that when his food dtray came, he just looked at it and did not know what to do with it. Then he ate almost the whole tray but needed to be fed.) Objective Vital Signs: Vital Signs - 24 hr 12/19/22 12/19/22 12/19/22 15:28 16:55 17:15 Temperature 36.7 C Heart Rate 45 L 60 Heart Rate [ 63 Brachial] Respiratory 12 12 20 Rate Blood Pressure 143/89 H 154/76 H Blood Pressure 177/83 H [Left Brachial artery] Blood Pressure [Right Brachial artery] Blood Pressure [Standing] Blood Pressure [Supine] O2 Saturation 97 100 99 If not protocol 2 : Oxygen Flow, liters/minute 12/19/22 12/19/22 12/20/22 22:39 23:39 03:48 Temperature 36.4 C L 36.6 C 36.3 C L Heart Rate Heart Rate [ 55 L 46 L 44 L Brachial] Respiratory 20 20 20 Rate Blood Pressure Blood Pressure 133/59 H [Left Brachial artery] Blood Pressure 122/53 L 122/58 L [Right Brachial artery] Blood Pressure [Standing] Blood Pressure [Supine] O2 Saturation 97 97 95 If not protocol : Oxygen Flow, liters/minute 12/20/22 12/20/22 12/20/22 07:28 09:00 10:30 Temperature 36.7 C Heart Rate Heart Rate [ 100 Brachial] Respiratory 20 18 Rate Blood Pressure Blood Pressure [Left Brachial artery] Blood Pressure 130/61 [Right Brachial artery] Blood Pressure 140/92 H [Standing] Blood Pressure 130/64 [Supine] O2 Saturation 95 96 If not protocol : Oxygen Flow, liters/minute 12/20/22 11:33 Temperature 36.6 C Heart Rate Heart Rate [ 68 Brachial] Respiratory 20 Rate Blood Pressure Blood Pressure [Left Brachial artery] Blood Pressure 130/64 [Right Brachial artery] Blood Pressure [Standing] Blood Pressure [Supine] O2 Saturation 96 If not protocol : Oxygen Flow, liters/minute Oxygen O2 Source Room air I&O (Last 24 Hrs): Intake and Output Totals x24h 12/18/22 12/19/22 12/20/22 23:59 23:59 23:59 Intake Total 200 1850 Balance 200 1850 General: Alert, No acute distress, Other (Lethargic) HEENT: Mucous membr. moist/pink Neck: Supple Neuro: Alert, Other (Less agitated, would not follow directions, answered the s kris sentence repeatedly to different questions, is moving all extremities. When handed a sock by OT, he did not know what to do with it. Had to be fed.) Cardiovascular: Regular rate Respiratory: No respiratory distress Abdomen: Soft, No tenderness Extremities: No clubbing, No edema, No tenderness/swelling - Results Results: Laboratory Results WBC 9.5 x10^3/uL (4.8-10.8) 12/19/22 12:53 RBC 5.25 10^6/uL (4.70-6.10) 12/19/22 12:53 Hgb 16.3 g/dL (14.0-18.0) 12/19/22 12:53 Hct 50.1 % (42.0-52.0) 12/19/22 12:53 MCV 95.4 fL (80.0-94.0) H 12/19/22 12:53 MCH 31.0 pg (27.0-31.0) 12/19/22 12:53 MCHC 32.5 g/dL (32.0-36.0) 12/19/22 12:53 RDW 12.7 % (12.0-15.0) 12/19/22 12:53 Plt Count 149 10^3/uL (130-450) 12/19/22 12:53 MPV 10.3 fL (7.4-11.4) 12/19/22 12:53 Neut # (Auto) 7.8 10^3/uL (1.5-6.6) H 12/19/22 12:53 Lymph # (Auto) 1.0 10^3/uL (1.5-3.5) L 12/19/22 12:53 [place] # (Auto) 0.7 10^3/uL (0.0-1.0) 12/19/22 12:53 Eos # (Auto) 0.0 10^3/uL (0.0-0.7) 12/19/22 12:53 Baso # (Auto) 0.0 10^3/uL (0.0-0.1) 12/19/22 12:53 Absolute Nucleated RBC 0.00 x10^3/uL 12/19/22 12:53 Nucleated RBC % 0.0 /100WBC 12/19/22 12:53 Sodium 136 mmol/L (135-145) 12/19/22 12:53 Potassium 4.0 mmol/L (3.5-4.5) 12/19/22 12:53 Chloride 101 mmol/L (101-111) 12/19/22 12:53 Carbon Dioxide 28 mmol/L (21-32) 12/19/22 12:53 Anion Gap 7.0 (6-13) 12/19/22 12:53 BUN 14 mg/dL (6-20) 12/19/22 12:53 Creatinine 0.9 mg/dL (0.6-1.3) 12/19/22 12:53 Estimated GFR (MDRD) 81 (>89) L 12/19/22 12:53 Glucose 112 mg/dL (74-104) H 12/19/22 12:53 Calcium 10.1 mg/dL (8.5-10.3) 12/19/22 12:53 Magnesium 1.9 mg/dL (1.7-2.3) 12/19/22 12:53 Total Bilirubin 1.2 mg/dL (0.2-1.0) H 12/19/22 12:53 AST 18 IU/L (10-42) 12/19/22 12:53 ALT 15 IU/L (10-60) 12/19/22 12:53 Alkaline Phosphatase 82 IU/L (42-121) 12/19/22 12:53 Total Creatine Kinase 76 IU/L (30-223) 12/19/22 12:53 Total Protein 7.5 g/dL (6.4-8.9) 12/19/22 12:53 Albumin 4.6 g/dL (3.2-5.5) 12/19/22 12:53 Globulin 2.9 g/dL (2.1-4.2) 12/19/22 12:53 Albumin/Globulin Ratio 1.6 (1.0-2.2) 12/19/22 12:53 Triglycerides 94 mg/dL (48-352) 12/20/22 04:35 Cholesterol 117 mg/dL (-200) 12/20/22 04:35 LDL Cholesterol, Calc 66 mg/dL (-129) 12/20/22 04:35 VLDL Cholesterol 19 mg/dL 12/20/22 04:35 HDL Cholesterol 32 mg/dL (60-) L 12/20/22 04:35 LDL/HDL Ratio 2.1 (<3.6) 12/20/22 04:35 Cholesterol/HDL Ratio 3.7 (<5.0) 12/20/22 04:35 Lipase 17 U/L (11-82) 12/19/22 12:53 TSH 1.09 uIU/mL (0.34-5.60) 12/19/22 12:53 Urine Color YELLOW 12/19/22 12:56 Urine Clarity CLEAR (CLEAR) 12/19/22 12:56 Urine pH 7.5 PH (5.0-7.5) 12/19/22 12:56 Ur Specific [place] 1.010 (1.002-1.030) 12/19/22 12:56 Urine Protein NEGATIVE mg/dL (NEGATIVE) 12/19/22 12:56 Urine Glucose (UA) NEGATIVE mg/dL (NEGATIVE) 12/19/22 12:56 Urine Ketones NEGATIVE mg/dL (NEGATIVE) 12/19/22 12:56 Urine Occult Blood NEGATIVE (NEGATIVE) 12/19/22 12:56 Urine Nitrite NEGATIVE (NEGATIVE) 12/19/22 12:56 Urine Bilirubin NEGATIVE (NEGATIVE) 12/19/22 12:56 Urine Urobilinogen 0.2 (NORMAL) E.U./dL (NORMAL) 12/19/22 12:56 Ur Leukocyte Esterase SMALL (NEGATIVE) H 12/19/22 12:56 Urine RBC 0-5 /HPF (0-5) 12/19/22 12:56 Urine WBC 0-3 /HPF (0-3) 12/19/22 12:56 Ur Squamous Epith Cells RARE Squamous (<= Few) 12/19/22 12:56 Urine Bacteria Rare /HPF (None Seen) 12/19/22 12:56 Ur Microscopic Review INDICATED 12/19/22 12:56 Urine Culture Comments INDICATED 12/19/22 12:56 Salicylates < 1.5 mg/dL 12/19/22 12:53 Urine Opiates Screen NEGATIVE (NEGATIVE) 12/19/22 12:56 Ur Oxycodone Screen NEGATIVE (NEGATIVE) 12/19/22 12:56 Urine Methadone Screen NEGATIVE (NEGATIVE) 12/19/22 12:56 Ur Propoxyphene Screen NEGATIVE (NEGATIVE) 12/19/22 12:56 Acetaminophen < 0.1 ug/mL 12/19/22 12:53 Ur Barbiturates Screen NEGATIVE (NEGATIVE) 12/19/22 12:56 Ur Tricyclics Screen NEGATIVE (NEGATIVE) 12/19/22 12:56 Ur Phencyclidine Scrn NEGATIVE (NEGATIVE) 12/19/22 12:56 Ur Amphetamine Screen NEGATIVE (NEGATIVE) 12/19/22 12:56 U Methamphetamines Scrn NEGATIVE (NEGATIVE) 12/19/22 12:56 U Benzodiazepines Scrn NEGATIVE (NEGATIVE) 12/19/22 12:56 Urine Cocaine Screen NEGATIVE (NEGATIVE) 12/19/22 12:56 U Cannabinoids Screen NEGATIVE (NEGATIVE) 12/19/22 12:56 Ethyl Alcohol < 10.0 mg/dL 12/19/22 12:53 - Procedures Procedures: Procedures EXCISION OF SIGMOID COLON, ENDO (01/26/16)
[2022-12-20] MEDS ORDERED: MANNITOL 20% IV ONE (16:00)
[2022-12-20] MEDS ORDERED: MANNITOL 20% 500 ML IV ONE (17:00)
[2022-12-20] MEDS: FAMOTIDINE 20 MG TABLET PO SCH (20:51)
[2022-12-20] MEDS: ATORVASTATIN 40 MG TABLET PO SCH (20:51)
[2022-12-20] MEDS: SODIUM CHLORIDE FLUSH 0.9% 10 ML SYRINGE IVP PRN (22:15)
[2022-12-20] MEDS: MANNITOL 20% 500 ML IV SCH (22:15)
[2022-12-21] MEDS: SODIUM CHLORIDE FLUSH 0.9% 10 ML SYRINGE IVP SCH ×3 (01:02→17:00)
[2022-12-21] MEDS: MANNITOL 20% 500 ML IV SCH ×2 (04:32→11:41)
[2022-12-21] MEDS: SODIUM CHLORIDE FLUSH 0.9% 10 ML SYRINGE IVP PRN ×2 (04:32→20:28)
[2022-12-21 05:18] LABS: BASOPHILS % (AUTO) 0.3 %; EOSINOPHILS % (AUTO) 0.2 %; HCT - HEMATOCRIT 42.3 % (42.0-52.0); HGB - HEMOGLOBIN 13.7 g/dL (14.0-18.0); LYMPHOCYTES # (AUTO) 0.5 10^3/uL (1.5-3.5); LYMPHOCYTES % (AUTO) 8.4 %; MEAN CORPUSCULAR HEMOGLOBIN 31.7 pg (27.0-31.0); MEAN CORPUSCULAR HGB CONC 32.4 g/dL (32.0-36.0); MEAN CORPUSCULAR VOLUME 97.9 fL (80.0-94.0); MEAN PLATELET VOLUME 10.6 fL (7.4-11.4); MONOCYTES # (AUTO) 0.6 10^3/uL (0.0-1.0); MONOCYTES % (AUTO) 10.1 %; NEUTROPHILS # (AUTO) 4.7 10^3/uL (1.5-6.6); NEUTROPHILS % (AUTO) 80.8 %; PLT - PLATELET COUNT 123 10^3/uL (130-450); RED BLOOD COUNT 4.32 10^6/uL (4.70-6.10); WHITE BLOOD COUNT 5.9 x10^3/uL (4.8-10.8)
[2022-12-21 05:22] LABS: CALCIUM, IONIZED 1.14 mmol/L (1.15-1.33); VBG PH 7.369 (7.31-7.41)
[2022-12-21 05:35] LABS: CALCIUM 8.8 mg/dL (8.5-10.3); MAGNESIUM 1.9 mg/dL (1.7-2.3); POTASSIUM 3.9 mmol/L (3.5-4.5)
[2022-12-21] MEDS ORDERED: POTASSIUM CHLORIDE 20 MEQ TABLET PO ONE (08:00)
[2022-12-21] MEDS: FAMOTIDINE 20 MG TABLET PO SCH ×2 (08:17→20:28)
[2022-12-21] MEDS: ASPIRIN EC 81 MG TABLET PO SCH (08:17)
--- NOTE | 2022-12-21 14:10 | PROVIDER PROGRESS NOTE ---
Subjective - Subjective Pt reports feeling: Improved (He needed to be fed but ate everything. He is able to speak today, not as somnolent but very confused and still has word finding problems) Objective - Vital Signs/Intake & Output Reviewed Vital Signs: Yes Vital Signs: Vital Signs Temp Pulse Resp BP Pulse Ox 12/21/22 14:00 54 L 12 140/81 H 97 12/21/22 13:00 66 16 137/54 H 98 12/21/22 12:00 36.6 C 67 20 169/75 H 95 12/21/22 11:00 57 L 18 116/60 96 Intake & Output: Intake & Output 12/18/22 12/19/22 12/20/22 12/21/22 23:59 23:59 23:59 23:59 Intake Total 200 3095 1370 Output Total 1100 750 Balance 200 1994 - Objective General Appearance: positive: No acute distress Eyes Bilateral: positive: EOMI ENT: positive: ENT inspection nml, No signs of dehydration Neck: positive: Nml inspection, No JVD Respiratory: positive: No respiratory distress Cardiovascular: positive: Regular rate & rhythm, No murmur Abdomen: positive: Non-tender, No distention Skin: positive: Warm, Dry Extremities: positive: Non-tender, No pedal edema Neurologic/Psychiatric: positive: Motor nml, Disoriented to person, Disoriented to place, Disoriented to time, Other (Answering to questions, not following commands, unable to feed himself) - Lab Results Fish Bones: 12/21/22 05:05 12/21/22 05:05 Other Labs: Lab Results x24hrs 12/21/22 12/21/22 12/21/22 Range/Units 05:05 05:05 05:05 WBC 5.9 (4.8-10.8) x10^3/uL RBC 4.32 L (4.70-6.10) 10^6/uL Hgb 13.7 L (14.0-18.0) g/dL Hct 42.3 (42.0-52.0) % MCV 97.9 H (80.0-94.0) fL MCH 31.7 H (27.0-31.0) pg MCHC 32.4 (32.0-36.0) g/dL RDW 13.0 (12.0-15.0) % Plt Count 123 L (130-450) 10^3/uL MPV 10.6 (7.4-11.4) fL Neut # (Auto) 4.7 (1.5-6.6) 10^3/uL Lymph # (Auto) 0.5 L (1.5-3.5) 10^3/uL [place] # (Auto) 0.6 (0.0-1.0) 10^3/uL Eos # (Auto) 0.0 (0.0-0.7) 10^3/uL Baso # (Auto) 0.0 (0.0-0.1) 10^3/uL Absolute Nucleated RBC 0.00 x10^3/uL Nucleated RBC % 0.0 /100WBC VBG pH 7.369 (7.31-7.41) Ionized Calcium 1.14 L (1.15-1.33) mmol/L Sodium 132 L (135-145) mmol/L Potassium 3.9 (3.5-4.5) mmol/L Chloride 100 L (101-111) mmol/L Carbon Dioxide 29 (21-32) mmol/L Anion Gap 3.0 L (6-13) BUN 16 (6-20) mg/dL Creatinine 1.0 (0.6-1.3) mg/dL Estimated GFR (MDRD) 72 L (>89) Glucose 98 (74-104) mg/dL Calcium 8.8 (8.5-10.3) mg/dL Phosphorus 3.0 (2.5-5.0) mg/dL Magnesium 1.9 (1.7-2.3) mg/dL Nasal Screen MRSA (PCR) (NEGATIVE) 12/20/22 Range/Units 15:40 WBC (4.8-10.8) x10^3/uL RBC (4.70-6.10) 10^6/uL Hgb (14.0-18.0) g/dL Hct (42.0-52.0) % MCV (80.0-94.0) fL MCH (27.0-31.0) pg MCHC (32.0-36.0) g/dL RDW (12.0-15.0) % Plt Count (130-450) 10^3/uL MPV (7.4-11.4) fL Neut # (Auto) (1.5-6.6) 10^3/uL Lymph # (Auto) (1.5-3.5) 10^3/uL [place] # (Auto) (0.0-1.0) 10^3/uL Eos # (Auto) (0.0-0.7) 10^3/uL Baso # (Auto) (0.0-0.1) 10^3/uL Absolute Nucleated RBC x10^3/uL Nucleated RBC % /100WBC VBG pH (7.31-7.41) Ionized Calcium (1.15-1.33) mmol/L Sodium (135-145) mmol/L Potassium (3.5-4.5) mmol/L Chloride (101-111) mmol/L Carbon Dioxide (21-32) mmol/L Anion Gap (6-13) BUN (6-20) mg/dL Creatinine (0.6-1.3) mg/dL Estimated GFR (MDRD) (>89) Glucose (74-104) mg/dL Calcium (8.5-10.3) mg/dL Phosphorus (2.5-5.0) mg/dL Magnesium (1.7-2.3) mg/dL Nasal Screen MRSA (PCR) NEGATIVE (NEGATIVE) Assessment/Plan - Problem List (1) Acute right MCA stroke Impression: The CT brain imaging shows an infarct in the right MCA territory. He presented intermittently confused with agitation, he was answering questions but with word-finding difficulty. Then yesterday, he was more somnolent, did not follow cues, was speaking less Fasting lipids showed LDL of 66, Trig 84. Today he has worsening mental status, is more lethargic, did not follow directions, did not know what to do with food on his plate or a sock that was handed to him. My concern is that his cerebral edema is worsening since he had a large territory of brain involved with the stroke Plan: Remain in the ICU Neurochecks every 4 hours. Remain off Ativan for agitation Cont telemetry, monitor for Afib Obtain Echo with bubble study to evaluate for cardiac source of embolus or PFO (He was admitted on Tuesday, today is , we have no care technician until Tuesday through ) Continue baby aspirin daily and Lipitor 20mg nightly PT and OT may be resumed since he has improved slightly today Awaiting Speech Therapist eugenio today I allowed permissive hypertension for the first 48 hours, so I will resume his BP meds today I updated the son at bedside today, regarding the plan. Depending on his progression, he may be a candidate for inpatient stroke rehab, which the son is interested in. Discussed with [facility]. (2) Cerebral edema Conclusion/Plan: The brain CT imaging reported cerebral edema but no midline shift. This bodes a poor prognosis. Yesterday I suspected his cerebral edema was worsening, since he had a large territory of brain involved with the stroke, and his neuro status worsened yesterday. He was transferred into the ICU and Mannitol iv bolus then q6h was ordered. With that, he has returned back to being more active, is intermittently confused, he speaks but with word-finding difficulty. Plan: I will obtain a repeat CT head today to evaluate the cerebral edema I will start weaning down the Mannitol from q6h to q8h. Measure serum osmolality daily (it is a send out lab, so we cannot have q6h results). I suspect today's Hyponatremia is pseudohyponatremia from a higher serum osmolallity. Neurochecks every 4 hours Remain off Ativan for agitation Keep HOB elevated at 30 degrees or more Given the significant confusion, I have advised that a family member stay in the room with him so he has familiarity (3) Hyponatremia All labs were reviewed. His sodium dropped from 136 yesterday to 132 today. I suspect today's Hyponatremia is pseudohyponatremia from a higher serum osmolallity. Plan: My plan is to wean the mannitol down to off over about a day Follow BMP daily (4) HTN (hypertension) Conclusion/Plan: Patient has a history of hypertension and is on 3 antihypertensives at home: Atenolol, lisinopril and Norvasc His EKG shows severe LVH which could be from this HTN Plan: I allowed 48 hours of permissive hypertension and I will order to resume his BP meds today (5) Cerebral vascular disease Conclusion/Plan: CTA images show that he has several vascular distributions with abnormality: A nearly occluded right MCA distally, a nearly occluded L vertebral distally and also severe stenosis proximally and internal carotids have evidence of prior dissection. The telemedicine neurologist did not recommend transfer for interventions acutely Ultrasound carotids was done and showed no significant stenoses and no dis section Plan: Management will be as for the (sub)acute stroke.
--- NOTE | 2022-12-21 15:28 | CT Report ---
PROCEDURE: HEAD WO INDICATIONS: stroke, worse clinical status, F/U cerebral edema TECHNIQUE: Noncontrast 4.5 mm thick angled axial sections acquired from the foramen magnum to the vertex. For r adiation dose reduction, the following was used: automated exposure control, adjustment of mA and/or kV according to patient size. COMPARISON: 12/19/2022 FINDINGS: Image quality: Excellent CSF spaces: Basal cisterns are patent. Lateral ventricles are symmetric. Volume: Vascular calcifications. Periventricular white matter disease is commonly seen with chronic m icroangiopathy. Volume loss is present. These findings are mild to moderate. Brain: Evolving, decreased attenuation of the right MCA territory infarction. No macroscopic hemorrha ge. No herniation. Craniofacial structures: No displaced fracture. Sinuses are clear. Orbits are intact. IMPRESSION: No macroscopic hemorrhage. Evolving right MCA territory infarction. Basal cisterns remain patent. Reviewed by: Mike Silva MD on 12/21/2022 3:27 PM PDT Approved by: Mike Silva MD on 12/21/2022 3:27 PM PDT Station ID: [id number]
[2022-12-21] MEDS ORDERED: HALOPERIDOL 5 MG/ML VIAL IVP ONE (17:42)
[2022-12-21] MEDS ORDERED: MANNITOL 20% 500 ML IV SCH (20:00)
[2022-12-21] MEDS: ATORVASTATIN 40 MG TABLET PO SCH (20:28)
[2022-12-22 04:31] LABS: VBG PH 7.547 (7.31-7.41)
[2022-12-22 04:32] LABS: CALCIUM, IONIZED 1.11 mmol/L (1.15-1.33)
[2022-12-22 04:44] LABS: CALCIUM 9.4 mg/dL (8.5-10.3); CREATININE 0.8 mg/dL (0.6-1.3); POTASSIUM 3.7 mmol/L (3.5-4.5)
[2022-12-22] MEDS: SODIUM CHLORIDE FLUSH 0.9% 10 ML SYRINGE IVP SCH ×3 (05:16→17:24)
[2022-12-22 05:32] LABS: MAGNESIUM 1.9 mg/dL (1.7-2.3); PHOSPHORUS 2.9 mg/dL (2.5-5.0)
--- NOTE | 2022-12-22 07:32 | PROVIDER PROGRESS NOTE ---
Subjective - Subjective Pt reports feeling: No change (Still impulsive, needs to walk to bathroom to urinate will not use urinal, tried to climb out of bed over the bed rail, is reoriented by his son at bedside) Objective - Vital Signs/Intake & Output Reviewed Vital Signs: Yes Vital Signs: Vital Signs Temp Pulse Resp BP Pulse Ox 12/22/22 07:00 54 L 16 164/67 H 12/22/22 06:00 56 L 13 138/65 H 12/22/22 05:00 50 L 17 145/63 H 12/22/22 04:00 36.5 C 59 L 19 104/72 97 Intake & Output: Intake & Output 12/19/22 12/20/22 12/21/22 12/22/22 23:59 23:59 23:59 23:59 Intake Total 200 3095 1655 100 Output Total 1100 750 Balance 200 1994 90 100 - Objective General Appearance: positive: No acute distress Eyes Bilateral: positive: Normal inspection, No lid inflammation ENT: positive: ENT inspection nml, No signs of dehydration Neck: positive: Nml inspection, No JVD Respiratory: positive: No respiratory distress Cardiovascular: positive: Regular rate & rhythm Abdomen: positive: Non-tender, No distention Skin: positive: Warm, Dry Extremities: positive: Non-tender, No pedal edema Neurologic/Psychiatric: positive: Oriented x3, Slurred/abnml speech, Other (Impulsive, difficult to re-orient unless spoken to sternly) - Lab Results Fish Bones: 12/21/22 05:05 12/23/22 05:31 Other Labs: Lab Results x24hrs 12/22/22 12/22/22 12/22/22 Range/Units 04:13 04:13 04:13 VBG pH 7.547 H (7.31-7.41) Ionized Calcium 1.11 L (1.15-1.33) mmol/L Sodium 137 (135-145) mmol/L Potassium 3.7 (3.5-4.5) mmol/L Chloride 107 (101-111) mmol/L Carbon Dioxide 23 (21-32) mmol/L Anion Gap 7.0 (6-13) BUN 15 (6-20) mg/dL Creatinine 0.8 (0.6-1.3) mg/dL Estimated GFR (MDRD) 93 (>89) Glucose 98 (74-104) mg/dL Calcium 9.4 (8.5-10.3) mg/dL Phosphorus 2.9 (2.5-5.0) mg/dL Magnesium 1.9 (1.7-2.3) mg/dL Assessment/Plan - Problem List (1) Acute right MCA stroke Impression: The CT brain imaging shows an infarct in the right MCA territory. He presented intermittently confused with agitation, he was answering questions but with word-finding difficulty. Fasting lipids showed LDL of 66, Trig 84. On 12/20 he had worsening mental status, was more lethargic, did not follow direc tions, did not know what to do with food on his plate or a sock that was handed to him. My concern was that his cerebral edema was worsening since cerbral edema was already seen at admission CT head, and he had a large territory of brain involved with the stroke. He was moved into the ICU, and Mannitol was started. On 12/21, his neuro status improved, back to his admission neuro deficits. Echo with bubble study was done yesterday and showed normal LVEF and no cardiac source of embolus or PFO Plan: Depending on his level of confusion today , he could possibly be transferred out of ICU Cont neurochecks every 4 hours. Remain off Ativan, was given for agitation. Haldol prn was ordered, in case he cannot be reoriented. Cont telemetry, monitor for Afib Continue baby aspirin daily and Lipitor 20mg nightly PT and OT to continue, since he is no longer lethargic Awaiting Speech Therapist eval and rec I allowed permissive hypertension for the first 48 hours, so I will resume his BP meds today I updated the son at bedside today, regarding the plan. Depending on his progression, he would be a candidate for inpatient stroke rehab, which the son is interested in. (2) Cerebral edema Conclusion/Plan: The brain CT imaging reported cerebral edema but no midline shift. This bodes a poor prognosis. On 12/20, I suspected his cerebral edema was worsening, since he had a large territory of brain involved with the stroke, and his neuro status worsened on 12/20. He was transferred into the ICU and Mannitol iv bolus then q6h was started. With that, on 12/21 yesterday, he returned back to being more active, is intermittently confused, he speaks but with word-finding difficulty. The repeat CT head done yesterday 12/21, to evaluate the cerebral edema, showed no edema, and showed the stroke in evolution. There are no serum osmol values back yet. Plan: Mannitol was weaned from q6h on 12/20 to q8h yesterday 12/21, and plan no further Mannitol today. Serum osmolality daily was ordered (it is a send out lab, so we cannot have q6h results). I suspect his Hyponatremia is pseudohyponatremia from a higher serum osmolallity. Neurochecks every 4 hours Remain off Ativan, was given for agitation Keep HOB elevated at 30 degrees or more Given the intermittent confusion, I have advised that a family member stay in the room with him so he has familiarity (3) Bradycardia Conclusion/Plan: The patient was very bradycardic at admission, on home Atenolol. His heart rates at admission ran 38-50. When he is asleep he still has heart rates in the 40s and 50s, even after Atenolol has been on hold for 3 days Plan: Will not resume Atenolol. Will stop it entirely, since he has no CHF or other reason to be on a B-pilar (4) HTN (hypertension) Conclusion/Plan: Patient has a history of hypertension and is on 3 antihypertensives at home: Atenolol, lisinopril and Norvasc His EKG shows severe LVH which could be from this HTN. I allowed 48 hours of permissive hypertension Plan: Resume Amlodipine and Lisinopril now (5) Cerebral vascular disease Conclusion/Plan: CTA images show that he has several vascular distributions with abnormality: A nearly occluded right MCA distally, a nearly occluded L vertebral distally and also severe stenosis proximally and internal carotids have evidence of prior dissection. The telemedicine neurologist did not recommend transfer for interventions acutely Ultrasound of carotids was done and showed no significant stenoses and no dissection Plan: Management will be as for the (sub)acute stroke, as in #1 (6) Hyponatremia Conclusion/Plan: RESOLVED All labs were reviewed. His sodium dropped from 136 to 132 yesterday. I suspect yesterday's Hyponatremia was pseudohyponatremia from a higher serum osmolallity from receiving Mannitol on the day prior. There are no serum osmol values back yet. Today serum Na is normal at 137. Plan: My plan is to wean the mannitol down to off over about a day Follow BMP daily
[2022-12-22] MEDS ORDERED: POTASSIUM CHLORIDE 20 MEQ TABLET PO ONE (08:00)
[2022-12-22] MEDS ORDERED: atenoloL 25 MG TABLET PO SCH (09:00)
[2022-12-22] MEDS: amLODIPine 5 MG TABLET PO SCH (09:15)
[2022-12-22] MEDS: ASPIRIN EC 81 MG TABLET PO SCH (09:15)
[2022-12-22] MEDS: FAMOTIDINE 20 MG TABLET PO SCH ×2 (09:15→20:54)
[2022-12-22] MEDS: lisinopriL 20 MG TABLET PO SCH (09:15)
[2022-12-22] MEDS: ATORVASTATIN 40 MG TABLET PO SCH (20:53)
[2022-12-22] MEDS ORDERED: QUEtiapine 25 MG TABLET PO SCH (21:00)
[2022-12-23] MEDS: SODIUM CHLORIDE FLUSH 0.9% 10 ML SYRINGE IVP SCH ×3 (01:25→17:58)
[2022-12-23 06:30] LABS: CALCIUM 9.1 mg/dL (8.5-10.3); CREATININE 0.8 mg/dL (0.6-1.3); POTASSIUM 3.5 mmol/L (3.5-4.5)
[2022-12-23 06:56] LABS: CALCIUM, IONIZED 1.16 mmol/L (1.15-1.33); VBG PH 7.413 (7.31-7.41)
[2022-12-23] MEDS: FAMOTIDINE 20 MG TABLET PO SCH ×2 (09:29→20:29)
[2022-12-23] MEDS: lisinopriL 20 MG TABLET PO SCH (09:29)
[2022-12-23] MEDS: amLODIPine 5 MG TABLET PO SCH (09:29)
[2022-12-23] MEDS: ASPIRIN EC 81 MG TABLET PO SCH (09:29)
[2022-12-23] MEDS ORDERED: QUEtiapine 25 MG TABLET PO PRN (11:05)
[2022-12-23] MEDS ORDERED: ZINC OXIDE 20% OINT 30 GM TUBE TOP PRN (13:16)
--- NOTE | 2022-12-23 19:10 | PROVIDER PROGRESS NOTE ---
Assessment/Plan - Problem List (1) Acute right MCA stroke Assessment/Plan: The CT brain imaging shows an infarct in the right MCA territory. He presented intermittently confused with agitation, he was answering questions but with word-finding difficulty. Fasting lipids showed LDL of 66, Trig 84. On 12/20 he had worsening mental status, was more lethargic, did not follow directions, did not know what to do with food on his plate or a sock that was handed to him. My concern was that his cerebral edema was worsening since cerbral edema was already seen at admission CT head, and he had a large territory of brain involved with the stroke. He was moved into the ICU, and Mannitol was started. On 12/21, his neuro status improved, back yto his admission neuro deficits. Echo with bubble study was done and showed normal LVEF and no cardiac source of embolus or PFO . He was transferred out of ICU last evening. I gave Seroquel 25 mg for insomnia, and he was too sleepy this morning. Speech Therapist eval Plan: Cont neurochecks every 4 hours. Remain off Ativan and Haldol. Will use Seroquel at 12.5 mg and only prn insomnia Cont telemetry, monitor for Afib Continue baby aspirin daily and Lipitor 20mg nightly PT and OT to continue and today he is redirectable easily I updated the son at bedside today, regarding the plan for inpatient stroke rehab, anticipate discharge to there tomorrow (2) Cerebral edema Conclusion/Plan: The brain CT imaging reported cerebral edema but no midline shift. This bodes a poor prognosis. On 12/20, I suspected his cerebral edema was worsening, since he had a large territory of brain involved with the stroke, and his neuro status worsened on 12/20. He was transferred into the ICU and Mannitol iv bolus then q6h was started. With that, on 12/21, he returned back to being more active, intermittently confused, he speaks but with word-finding difficulty. The repeat CT head done 12/21, to evaluate the cerebral edema, showed no edema, and showed the stroke in evolution. There are no serum osmol values back yet. Mannitol was weaned from q6h on 12/20 to q8h yesterday 12/21, then stopped Plan: Serum osmolality daily was ordered (it is a send out lab, so we still do not have a result from 12/20). I suspect his Hyponatremia is pseudohyponatremia from a higher serum osmolallity. Neurochecks every 4 hours Keep HOB elevated at 30 degrees or more Given the intermittent confusion, I have advised that a family member stay in the room with him so he has familiarity (3) Bradycardia Conclusion/Plan: The patient was very bradycardic at admission, on home Atenolol. His heart rates at admission ran 38-50. When he is asleep he still has heart rates in the 40s and 50s, even after Atenolol has been on hold for 3 days Plan: Will not resume Atenolol. Will stop it entirely, since he has no CHF or other reason to be on a B-pilar (4) HTN (hypertension) Conclusion/Plan: Patient has a history of hypertension and is on 3 antihypertensives at home: Atenolol, lisinopril and Norvasc His EKG shows severe LVH which could be from this HTN. I allowed 48 hours of permissive hypertension Plan: Continue just Amlodipine and Lisinopril now (5) Cerebral vascular disease Conclusion/Plan: CTA images show that he has several vascular distributions with abnormality: A nearly occluded right MCA distally, a nearly occluded L vertebral distally and also severe stenosis proximally and internal carotids have evidence of prior dissection. The telemedicine neurologist did not recommend transfer for interventions acutely Ultrasound of carotids was done and showed no significant stenoses and no dissection Plan: Management will be as for the (sub)acute stroke, as in #1 (6) Hyponatremia Conclusion/Plan: RESOLVED All labs were reviewed. His sodium dropped from 136 to 132. I suspect the Hyponatremia was pseudohyponatremia from a higher serum osmolallity from receiving Mannitol. There are no serum osmol values back yet. Today serum Na is normal at 139. Plan: Follow BMP daily - Current Meds Current Meds: Current Medications Generic Name Dose Route Start Last Admin Trade Name Proq PRN Reason Stop Dose Admin Amlodipine Besylate 10 mg 12/22/22 09:00 12/23/22 09:29 Amlodipine 5 Mg Tablet PO 10 mg DAILY MOSES Administration Aspirin 81 mg 12/20/22 09:00 12/23/22 09:29 Aspirin Ec 81 Mg Tablet PO 81 mg DAILY MOSES Administration Atorvastatin Calcium 20 mg 12/20/22 21:00 12/22/22 20:53 Atorvastatin 40 Mg Tablet PO 20 mg QPM MOSES Administration Famotidine 20 mg 12/20/22 21:00 12/23/22 09:29 Famotidine 20 Mg Tablet PO 20 mg BID MOSES Administration Lisinopril 40 mg 12/22/22 09:00 12/23/22 09:29 Lisinopril 20 Mg Tablet PO 40 mg DAILY MOSES Administration Sodium Chloride 10 ml 12/19/22 16:35 12/21/22 20:28 Sodium Chloride Flush 0.9% 10 Ml Syringe IVP 10 ml PRN PRN Administration NEEDED PER PROVIDER ORDERS Sodium Chloride 10 ml 12/19/22 17:00 12/23/22 17:58 Sodium Chloride Flush 0.9% 10 Ml Syringe IVP 10 ml 0100,0900,1700 MOSES Administration - Lab Result Fish Bone Diagrams: 12/21/22 05:05 12/23/22 05:31 - Additional Planning My Orders: My Active Orders 12/23/22 05:31 OSMOLALITY [REFLAB] DAILYLAB 12/23/22 11:05 QUEtiapine [SEROquel] 12.5 mg PO QPM PRN 12/23/22 13:16 Zinc Oxide 20% Oint [Zinc Oxide] 1 applic TOP PRN PRN Subjective - Subjective Patient Reports: Feeling Better (Able to follow direstions, was able to walk w/ standby assist today) Objective Vital Signs: Vital Signs - 24 hr 12/23/22 12/23/22 12/23/22 01:20 06:00 14:00 Temperature 36.8 C 36.5 C 36.4 C L Heart Rate [ 56 L 70 40 L Brachial] Respiratory 16 18 18 Rate Blood Pressure 111/57 L 163/76 H [Right Brachial artery] O2 Saturation 96 95 97 12/23/22 16:27 Temperature 36.6 C Heart Rate [ 55 L Brachial] Respiratory 14 Rate Blood Pressure 170/70 H [Right Brachial artery] O2 Saturation 99 Oxygen O2 Source Room air I&O (Last 24 Hrs): Intake and Output Totals x24h 12/21/22 12/22/22 12/23/22 23:59 23:59 23:59 Intake Total 5318 436 9067 Output Total 750 0 1 Balance 781 162 9734 General: Alert, Oriented x3 HEENT: Mucous membr. moist/pink Neck: Supple, No JVD Neuro: Alert, Non Focal, Other (Speech stuttering and w/ word-finding difficulty. walks with arms held out sideways (as if using them for balance)) Cardiovascular: Regular rate Respiratory: No respiratory distress Abdomen: Soft, No tenderness Extremities: No clubbing, No edema, No tenderness/swelling - Results Results: Laboratory Results WBC 5.9 x10^3/uL (4.8-10.8) 12/21/22 05:05 RBC 4.32 10^6/uL (4.70-6.10) L 12/21/22 05:05 Hgb 13.7 g/dL (14.0-18.0) L 12/21/22 05:05 Hct 42.3 % (42.0-52.0) 12/21/22 05:05 MCV 97.9 fL (80.0-94.0) H 12/21/22 05:05 MCH 31.7 pg (27.0-31.0) H 12/21/22 05:05 MCHC 32.4 g/dL (32.0-36.0) 12/21/22 05:05 RDW 13.0 % (12.0-15.0) 12/21/22 05:05 Plt Count 123 10^3/uL (130-450) L 12/21/22 05:05 MPV 10.6 fL (7.4-11.4) 12/21/22 05:05 Neut # (Auto) 4.7 10^3/uL (1.5-6.6) 12/21/22 05:05 Lymph # (Auto) 0.5 10^3/uL (1.5-3.5) L 12/21/22 05:05 [place] # (Auto) 0.6 10^3/uL (0.0-1.0) 12/21/22 05:05 Eos # (Auto) 0.0 10^3/uL (0.0-0.7) 12/21/22 05:05 Baso # (Auto) 0.0 10^3/uL (0.0-0.1) 12/21/22 05:05 Absolute Nucleated RBC 0.00 x10^3/uL 12/21/22 05:05 Nucleated RBC % 0.0 /100WBC 12/21/22 05:05 VBG pH 7.413 (7.31-7.41) H 12/23/22 05:31 Ionized Calcium 1.16 mmol/L (1.15-1.33) 12/23/22 05:31 Sodium 139 mmol/L (135-145) 12/23/22 05:31 Potassium 3.5 mmol/L (3.5-4.5) 12/23/22 05:31 Chloride 108 mmol/L (101-111) 12/23/22 05:31 Carbon Dioxide 26 mmol/L (21-32) 12/23/22 05:31 Anion Gap 5.0 (6-13) L 12/23/22 05:31 BUN 13 mg/dL (6-20) 12/23/22 05:31 Creatinine 0.8 mg/dL (0.6-1.3) 12/23/22 05:31 Estimated GFR (MDRD) 93 (>89) 12/23/22 05:31 Glucose 94 mg/dL (74-104) 12/23/22 05:31 Serum Osmolality 290 mOsmol/kg (280-301) 12/22/22 04:13 Calcium 9.1 mg/dL (8.5-10.3) 12/23/22 05:31 Phosphorus 2.9 mg/dL (2.5-5.0) 12/22/22 04:13 Magnesium 1.9 mg/dL (1.7-2.3) 12/22/22 04:13 Total Bilirubin 1.2 mg/dL (0.2-1.0) H 12/19/22 12:53 AST 18 IU/L (10-42) 12/19/22 12:53 ALT 15 IU/L (10-60) 12/19/22 12:53 Alkaline Phosphatase 82 IU/L (42-121) 12/19/22 12:53 Total Creatine Kinase 76 IU/L (30-223) 12/19/22 12:53 Total Protein 7.5 g/dL (6.4-8.9) 12/19/22 12:53 Albumin 4.6 g/dL (3.2-5.5) 12/19/22 12:53 Globulin 2.9 g/dL (2.1-4.2) 12/19/22 12:53 Albumin/Globulin Ratio 1.6 (1.0-2.2) 12/19/22 12:53 Triglycerides 94 mg/dL (48-352) 12/20/22 04:35 Cholesterol 117 mg/dL (-200) 12/20/22 04:35 LDL Cholesterol, Calc 66 mg/dL (-129) 12/20/22 04:35 VLDL Cholesterol 19 mg/dL 12/20/22 04:35 HDL Cholesterol 32 mg/dL (60-) L 12/20/22 04:35 LDL/HDL Ratio 2.1 (<3.6) 12/20/22 04:35 Cholesterol/HDL Ratio 3.7 (<5.0) 12/20/22 04:35 Lipase 17 U/L (11-82) 12/19/22 12:53 TSH 1.09 uIU/mL (0.34-5.60) 12/19/22 12:53 Urine Color YELLOW 12/19/22 12:56 Urine Clarity CLEAR (CLEAR) 12/19/22 12:56 Urine pH 7.5 PH (5.0-7.5) 12/19/22 12:56 Ur Specific [place] 1.010 (1.002-1.030) 12/19/22 12:56 Urine Protein NEGATIVE mg/dL (NEGATIVE) 12/19/22 12:56 Urine Glucose (UA) NEGATIVE mg/dL (NEGATIVE) 12/19/22 12:56 Urine Ketones NEGATIVE mg/dL (NEGATIVE) 12/19/22 12:56 Urine Occult Blood NEGATIVE (NEGATIVE) 12/19/22 12:56 Urine Nitrite NEGATIVE (NEGATIVE) 12/19/22 12:56 Urine Bilirubin NEGATIVE (NEGATIVE) 12/19/22 12:56 Urine Urobilinogen 0.2 (NORMAL) E.U./dL (NORMAL) 12/19/22 12:56 Ur Leukocyte Esterase SMALL (NEGATIVE) H 12/19/22 12:56 Urine RBC 0-5 /HPF (0-5) 12/19/22 12:56 Urine WBC 0-3 /HPF (0-3) 12/19/22 12:56 Ur Squamous Epith Cells RARE Squamous (<= Few) 12/19/22 12:56 Urine Bacteria Rare /HPF (None Seen) 12/19/22 12:56 Ur Microscopic Review INDICATED 12/19/22 12:56 Urine Culture Comments INDICATED 12/19/22 12:56 Nasal Screen MRSA (PCR) NEGATIVE (NEGATIVE) 12/20/22 15:40 Salicylates < 1.5 mg/dL 12/19/22 12:53 Urine Opiates Screen NEGATIVE (NEGATIVE) 12/19/22 12:56 Ur Oxycodone Screen NEGATIVE (NEGATIVE) 12/19/22 12:56 Urine Methadone Screen NEGATIVE (NEGATIVE) 12/19/22 12:56 Ur Propoxyphene Screen NEGATIVE (NEGATIVE) 12/19/22 12:56 Acetaminophen < 0.1 ug/mL 12/19/22 12:53 Ur Barbiturates Screen NEGATIVE (NEGATIVE) 12/19/22 12:56 Ur Tricyclics Screen NEGATIVE (NEGATIVE) 12/19/22 12:56 Ur Phencyclidine Scrn NEGATIVE (NEGATIVE) 12/19/22 12:56 Ur Amphetamine Screen NEGATIVE (NEGATIVE) 12/19/22 12:56 U Methamphetamines Scrn NEGATIVE (NEGATIVE) 12/19/22 12:56 U Benzodiazepines Scrn NEGATIVE (NEGATIVE) 12/19/22 12:56 Urine Cocaine Screen NEGATIVE (NEGATIVE) 12/19/22 12:56 U Cannabinoids Screen NEGATIVE (NEGATIVE) 12/19/22 12:56 Ethyl Alcohol < 10.0 mg/dL 12/19/22 12:53 - Procedures Procedures: Procedures EXCISION OF SIGMOID COLON, ENDO (01/26/16)
[2022-12-23] MEDS: ATORVASTATIN 40 MG TABLET PO SCH (20:29)
[2022-12-24] MEDS: SODIUM CHLORIDE FLUSH 0.9% 10 ML SYRINGE IVP SCH ×2 (01:00→08:55)
--- NOTE | 2022-12-24 08:09 | Discharge Plan ---
"Discharge Plan for SNF / [facility] - Discharge Plan And Transition Orders Problem Reviewed?: Yes Disposition: 03 SNF DC/Xfer Condition: Fair Allergies and Adverse Reactions: Allergies Allergy/AdvReac Type Severity Reaction Status Date / Time No Known Drug Allergies Allergy Verified 12/19/22 12:15 Health Concerns: Patient was hospitalized for a stroke. The symptoms started 24 hours before presenting to the ER and included confusion and word finding difficulty. Brain imaging showed right MCA territory stroke plus cerebral edema. He also had several areas of severe vascular stenoses. He was deemed not needing transfer since no interventions would be done at greater than 24-hour presentation. On his next day he was more lethargic, he was moved to the ICU and received 2 days of iv mannitol. With this he improved back to his presenting symptoms of word finding difficulty, poor memory and impulsivity. He was finally able to be redirected, follows directions and is a candidate for aggressive PT, OT and speech therapy in an inpatient stroke rehab unit. Plan of Treatment: Transfer to inpatient stroke rehab. Continue meds for blood pressure, aspirin and lipitor. Care Goals: Improvement in symptoms and stabilization are the goals. Assessment: The patient and son at bedside understand and are agreeable with the plan. - SNF / [facility] Transition Orders Admit to (Facility): [facility] [place] Under the care of (Name): Dr Chowdary Discharge Diagnosis: (1) Acute right MCA stroke (2) Cerebral edema Resolved after Mannitol was given (3) Bradycardia Improved after Atenolol stopped (4) HTN (hypertension) Stable on Amlodipine and Lisinopril (5) Cerebral vascular disease CTA images showed that he has several vascular distributions with significant stenoses (6) Hyponatremia Resolved after Mannitol stopped Medicare Certification Statement: I certify that [facility] halfway care is medically necessary on a continuing basis for any of the conditions for which she/he is receiving care during hospitalization. Notify PCP of admission and forward orders to primary provider for signature. Weight on admission and: Weekly Call PCP immediately if weight increases by: 5 kg Other Notification Orders: Call PCP immediately if patient develops dyspnea, chest pain/tightness or edema. House Bowel Program: Yes Additional Bowel Program Orders: If no BM after 2 days, nurse may give M.O.M. 30ml PO PRN and/or ducolax Supp 1 [place] and/or LUIZ 250mg P.O., and/or senna 1-2 tabs PO. On day 3 nurse may give re peat above order until residents constipation is resolved. Annual Influenza Vaccine (between Dec 10 and July 09): Yes Two-step PPD per [facility] [phone] or approved exception documents: Yes Treatments & Other Orders: PT, OT and Speech Therapy rehab Medication Orders: PLEASE REFER TO THE DISCHARGE MEDICATION LIST. Insulin Orders?: Yes - Medications New Prescriptions: Aspirin EC [Ecotrin] 81 mg PO DAILY #30 tab Atorvastatin [Lipitor] 20 mg PO QPM #60 tablet QUEtiapine [SEROquel] 12.5 mg PO QPM PRN #15 tab PRN Reason: Insomnia - Diet Type: Geriatric (Low salt) Texture: Mech soft (Patient needs to be fed until he can feed himself,hopefully after working with OT) Liquids: Thin May have monthly special meal: Yes - Therapies | Activity Therapy: Evaluation | Treat if indicated: Speech, PT, OT Rehabilitation Potential: Maximize functional status Activity: No Restrictions Weight Bearing: Full Weight Follow Up: See PCP after discharge from inpatient rehab."
--- NOTE | 2022-12-24 08:38 | DISCHARGE SUMMARY ---
Discharge Summary Admit Date: 12/19/22 Discharge Date: 12/24/22 Discharging Provider: Tasha Patel MD Primary Care Provider: Lily Bucio NP Code Status: Do Not Attempt Resuscitation Condition at Discharge: Fair Discharge Disposition: 03 SNF DC/Xfer - DIAGNOSES Admission Diagnoses: (1) Acute right MCA stroke (2) Cerebral edema (3) Cerebral vascular disease (4) HTN (hypertension) - HPI History of Present Illness: This is an 82-year-old male with history of hypertension on 3 medications and BPH on treatment. He lives alone for the past 15 years. He drives a car. He makes his own meals and is responsible for his medicines. He was out fishing just 2 days ago. He then developed symptoms of confusion and difficulty finding words yesterday while at a , and needed to be taken home from the receptionist scheduler and the neighbor checked in on him. Today the son arrived from [place] and witnessed confusion, poor memory and trouble finding words and the pt was brought to the ER today, over 24 hours after first onset of symptoms. Work-up in the ED showed a subacute stroke in the R MCA territory with cerbral edema and sulcal effacement but no hemorrhage or midline shift. 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 The ED provider reached out to telemedicine neurology who advised admission here for stroke work-up and to start aspirin and Lipitor. The ED provider then spoke to me about this patient for admission. I asked the son at bedside what the patient's CODE BLUE wishes are, and he wants to be a DNR/DNI. - HOSPITAL COURSE Hospital Course: (1) Acute right MCA stroke He presented intermittently confused with agitation, he was answering questions but with word-finding difficulty. The CT brain imaging showed an infarct in the right MCA territory. Fasting lipids showed LDL of 66, Trig 84. His Echo with bubble study showed normal LVEF and no cardiac source of embolus or PFO. On telemetry, no A-fib was seen. He was put on baby aspirin daily and Lipitor 20mg nightly and got prn Ativan then changed to prn Seroquel for insomnia. He worked with PT, OT and was seen by Speech Therapy. He has potential for recovery back to significant function, since he was independent, even able to fish just 2 days before this event. He was accepted in transfer to inpatient stroke rehab at [facility] and was transferred there in stable condition. (2) Cerebral edema The admission brain CT imaging reported cerebral edema but no midline shift. The day after admission, on 12/20, he had worsening mental status, with more lethargy, he did not follow directions, did not know what to do with food on his plate, or a sock that was handed to him. I suspected his cerebral edema was worsening, and he had a large territory of brain involved with the stroke. He was moved into the ICU, and Mannitol was started. On 12/21, his neuro status improved, back to his admission neuro deficits. (3) Bradycardia The patient was very bradycardic at admission, taking home Atenolol. His heart rates at admission ran 38-50. When asleep he still had heart rates in the 40s and 50s, even after Atenolol had been on hold for 3 days. We did not resume Atenolol. It was stopped entirely, since he has no CHF or other reason to be on a B-pilar (4) HTN (hypertension) Patient was on 3 antihypertensives at home: Atenolol, Lisinopril and Norvasc. His EKG shows severe LVH, likely from this HTN. We allowed 48 hours of permissive hypertension, then only his Amlodipine and Lisinopril were resumed. (5) Cerebral vascular disease CTA images show that he has several vascular distributions significant stenoses but no dissection: A nearly occluded R MCA distally, a nearly occluded L vert ebral distally and also severe vertebral artery stenosis proximally, and internal carotids have "evidence of prior dissection". The telemedicine neurologist did not recommend transfer for interventions. Ultrasound of carotids was done and showed no dissection and no significant narrowings. (6) Hyponatremia His sodium dropped from 136 to 132. I suspect this was pseudohyponatremia from a higher serum osmolallity from receiving Mannitol. A serum osmolality was ordered, it is a send out lab, and results are not back yet, even at time of discharge. Mannitol was stopped and the serum sodium improved to 137 then 139 at the time of discharge - ALLERGIES Allergies/Adverse Reactions: Allergies Allergy/AdvReac Type Severity Reaction Status Date / Time No Known Drug Allergies Allergy Verified 12/19/22 12:15 - MEDICATIONS Home Medications: Ambulatory Orders Medication Instructions Recorded Confirmed Amlodipine Besylate 10 mg PO DAILY 01/26/16 12/20/22 Lisinopril 40 mg PO DAILY 01/26/16 12/20/22 Aspirin EC [Ecotrin] 81 mg PO DAILY #30 tab 12/24/22 Atorvastatin [Lipitor] 20 mg PO QPM #60 tablet 12/24/22 QUEtiapine [SEROquel] 12.5 mg PO QPM PRN #15 tab 12/24/22 - PHYSICAL EXAM AT DISCHARGE General Appearance: positive: No acute distress, Alert, Other (Elderly, thin male) Eyes Bilateral: positive: Normal inspection, EOMI ENT: positive: ENT inspection nml, No signs of dehydration Neck: positive: Nml inspection, No JVD Respiratory: positive: No respiratory distress, Breath sounds nml Cardiovascular: positive: Regular rate & rhythm, No murmur Abdomen: positive: Non-tender, Nml bowel sounds, No distention Skin: positive: Warm, Dry Extremities: positive: Non-tender, No pedal edema Neurologic/Psychiatric: positive: Oriented x3, Other (Poor memory. Has stuttering and word-finding difficulty. Is impulsive. Walks with arms raised at sides for balance. Is emotionally labile (often tearful).) - LABS Result Diagrams: 12/21/22 05:05 12/23/22 05:31 - DIAGNOSTIC IMAGING Diagnostic Imaging Results: Final report reviewed - FOLLOW UP Follow Up: See PCP after discharge from inpatient Stroke rehab at [facility]. - TIME SPENT Time Spent in Discharge (Minutes): 40
[2022-12-24] MEDS: FAMOTIDINE 20 MG TABLET PO SCH (08:55)
[2022-12-24] MEDS: amLODIPine 5 MG TABLET PO SCH (08:55)
[2022-12-24] MEDS: ASPIRIN EC 81 MG TABLET PO SCH (08:55)
[2022-12-24] MEDS: lisinopriL 20 MG TABLET PO SCH (08:55)
[2022-12-24 08:59] VITALS: BP 137/73; O2SAT 98
== END 2022-12-24 09:35 | DRG 64 ==
LOC: ED 12:10 → MS2 16:35 → ICU 12-20 15:47 → MS2 12-22 11:45
PROVIDERS: ADMIT Internal Medicine; ATTEND Internal Medicine
DX: I63.9 Cerebral infarction, unspecified (principal); I63.511 Cerebral infarction due to unspecified occlusion or stenosis of right middle cerebral artery; G93.6 Cerebral edema; I44.0 Atrioventricular block, first degree; E87.1 Hypo-osmolality and hyponatremia; I10 Essential (primary) hypertension; N40.0 Benign prostatic hyperplasia without lower urinary tract symptoms; I65.02 Occlusion and stenosis of left vertebral artery; R00.1 Bradycardia, unspecified; R29.704 NIHSS score 4; R47.89 Other speech disturbances; Z66 Do not resuscitate; Z79.899 Other long term (current) drug therapy; Z87.891 Personal history of nicotine dependence
CPT/HCPCS: 36415; 70450; 70496; 70498; 80048; 80053; 80061; 80306; 80307; 81001; 82330; 82550; 83690; 83735; 83930; 84100; 84443; 85025; 87086; 87150; 93005; 93306; 93880; 97162; 97166; 97530; 97535; 99285; A9270; G0480; J2060; Q9967; 80320; 80329; 81003; 83721

== ENCOUNTER 2023-07-01 08:00 | Outpatient (CLI) | payer MEDICARE, OTHER | END 2023-07-01 23:59 | disposition home or self-care (01) | LOC: PC 08:00 | PROVIDERS: ATTEND Nurse Practitioner Gerontology | DX: Z51.5 Encounter for palliative care (principal); I69.320 Aphasia following cerebral infarction; G47.00 Insomnia, unspecified; R63.4 Abnormal weight loss; Z79.899 Other long term (current) drug therapy; Z66 Do not resuscitate; Z87.891 Personal history of nicotine dependence; Z86.59 Personal history of other mental and behavioral disorders | CPT/HCPCS: 99350 ==

== ENCOUNTER → 2023-08-16 | Outpatient (CLI) | payer MEDICARE, OTHER | LOC: PC 08:00 | PROVIDERS: ATTEND Nurse Practitioner Gerontology | DX: Z51.5 Encounter for palliative care (principal); I69.320 Aphasia following cerebral infarction; R32 Unspecified urinary incontinence; R63.4 Abnormal weight loss; R60.0 Localized edema; R26.81 Unsteadiness on feet; R26.9 Unspecified abnormalities of gait and mobility; R45.86 Emotional lability; H53.8 Other visual disturbances; R45.89 Other symptoms and signs involving emotional state; I48.91 Unspecified atrial fibrillation; I10 Essential (primary) hypertension; R63.0 Anorexia; Z66 Do not resuscitate; Z79.899 Other long term (current) drug therapy; Z79.01 Long term (current) use of anticoagulants; Z63.8 Other specified problems related to primary support group | CPT/HCPCS: 99350 ==

== ENCOUNTER 2023-08-17 08:00 | Outpatient (CLI) | payer MEDICARE, OTHER ==
[2023-08-17 14:54] LABS: BILIRUBIN,URINE NEGATIVE (NEGATIVE); GLUCOSE, URINE (UA) NEGATIVE (NEGATIVE); KETONES,URINE (UA) NEGATIVE (NEGATIVE); LEUKOCYTE ESTERASE, URINE NEGATIVE (NEGATIVE); NITRITE,URINE NEGATIVE (NEGATIVE); OCCULT BLOOD,URINE NEGATIVE (NEGATIVE); PROTEIN,URINE NEGATIVE (NEGATIVE); UROBILINOGEN,URINE 0.2 (NORMAL) E.U./dL (NORMAL)
[2023-08-17 14:56] LABS: CLARITY,URINE CLEAR (CLEAR)
[2023-08-17 15:12] LABS: BACTERIA,URINE Rare /HPF (None Seen); RBC,URINE 0-5 /HPF (0-5); SQUAMOUS EPITHELIAL CELL,UR NONE SEEN (<= Few); WBC,URINE 0-3 /HPF (0-3)
== END 2023-08-17 23:59 | disposition home or self-care (01) ==
LOC: LAB 08:00
PROVIDERS: ATTEND Nurse Practitioner Gerontology
DX: R32 Unspecified urinary incontinence (principal)
CPT/HCPCS: 81001; 87086

== ENCOUNTER 2023-08-25 08:00 | Outpatient (CLI) | payer MEDICARE, OTHER | END 2023-08-25 23:59 | disposition home or self-care (01) | LOC: PC 08:00 | PROVIDERS: ATTEND Nurse Practitioner Gerontology | DX: Z51.5 Encounter for palliative care (principal); I69.320 Aphasia following cerebral infarction; R45.86 Emotional lability; Z87.891 Personal history of nicotine dependence; Z79.899 Other long term (current) drug therapy; Z79.01 Long term (current) use of anticoagulants; R60.0 Localized edema; R32 Unspecified urinary incontinence; R63.0 Anorexia; Z63.8 Other specified problems related to primary support group; Z66 Do not resuscitate | CPT/HCPCS: 99350 ==

== ENCOUNTER 2023-09-07 08:00 | Outpatient (CLI) | payer MEDICARE, OTHER | END 2023-09-07 23:59 | disposition home or self-care (01) | LOC: PC 08:00 | PROVIDERS: ATTEND Nurse Practitioner Gerontology | DX: Z51.5 Encounter for palliative care (principal); R45.89 Other symptoms and signs involving emotional state; R26.89 Other abnormalities of gait and mobility; I69.320 Aphasia following cerebral infarction; I48.91 Unspecified atrial fibrillation; Z79.01 Long term (current) use of anticoagulants | CPT/HCPCS: 99215 ==

== ENCOUNTER 2023-10-24 08:00 | Outpatient (CLI) | payer MEDICARE, OTHER | END 2023-10-24 23:59 | disposition home or self-care (01) | LOC: PC 08:00 | PROVIDERS: ATTEND Nurse Practitioner Gerontology | DX: Z51.5 Encounter for palliative care (principal); F01.B3 Vascular dementia, moderate, with mood disturbance; K59.01 Slow transit constipation; I69.319 Unspecified symptoms and signs involving cognitive functions following cerebral infarction; I69.320 Aphasia following cerebral infarction; I48.91 Unspecified atrial fibrillation; I10 Essential (primary) hypertension; G30.9 Alzheimer's disease, unspecified; F02.83 Dementia in other diseases classified elsewhere, unspecified severity, with mood disturbance; N40.0 Benign prostatic hyperplasia without lower urinary tract symptoms; Z71.89 Other specified counseling; Z87.891 Personal history of nicotine dependence | CPT/HCPCS: 99350; G0318; 99417 ==

== ENCOUNTER 2023-11-25 08:00 | Outpatient (CLI) | payer MEDICARE, OTHER | END 2023-11-25 23:59 | disposition home or self-care (01) | LOC: PC 08:00 | PROVIDERS: ATTEND Nurse Practitioner Gerontology | DX: Z51.5 Encounter for palliative care (principal); G30.9 Alzheimer's disease, unspecified; F02.811 Dementia in other diseases classified elsewhere, unspecified severity, with agitation; F02.82 Dementia in other diseases classified elsewhere, unspecified severity, with psychotic disturbance; F02.83 Dementia in other diseases classified elsewhere, unspecified severity, with mood disturbance; F01.B11 Vascular dementia, moderate, with agitation; F01.B2 Vascular dementia, moderate, with psychotic disturbance; F01.B3 Vascular dementia, moderate, with mood disturbance; F31.60 Bipolar disorder, current episode mixed, unspecified; F42.9 Obsessive-compulsive disorder, unspecified; I10 Essential (primary) hypertension; I48.91 Unspecified atrial fibrillation; Z86.73 Personal history of transient ischemic attack (TIA), and cerebral infarction without residual deficits; Z87.891 Personal history of nicotine dependence | CPT/HCPCS: 99350 ==